=== PATIENT | male | born 1980 | race Caucasian/White ===

== ENCOUNTER 2022-11-24 22:31 | Emergency (ER) | payer BC, SELFPAY ==
[2022-11-24 22:44] VITALS: BP 150/78; PULSE 84; RESP 18; TEMP 36.8; O2SAT 99; BMI 24.4
[2022-11-24 23:06] VITALS: BP 150/78; PULSE 84; RESP 18; TEMP 36.8
--- NOTE | 2022-11-24 23:06 | ED_ITS ---
[facility] - General Adult General Date Seen: 11/24/22 Chief complaint: Allergic Reaction Stated complaint: allergic reaction Time Seen by Provider: 11/24/22 22:47 Source: patient History of Present Illness HPI narrative: Patient is a 42-year-old male who presents for evaluation of rash. He says earlier today he developed itching and a red raised rash on his face and scalp. No new products, medications, or foods. He has not had this happen before. He thought it was getting better but then it recurred. He took some Benadryl about an hour ago. He has not had any difficulty breathing, wheezing, swelling. No recent illness. No vomiting or diarrhea. Symptoms seem to be centered primarily around his face and head. His eyes are a little bit red, eyelids are little swollen. No visual complaints. Related Data Home Medications Medication Instructions Recorded Confirmed No Known Home Medications 11/24/22 11/24/22 Allergies Allergy/AdvReac Type Severity Reaction Status Date / Time No Known Drug Allergies Allergy Verified 11/24/22 22:46 Review of Systems Status of ROS: Reports: 6 or more systems reviewed and unremarkable except as noted in History and below [facility] Medical History No significant past medical history Surgical History No significant past surgical history Social History Smoking Status: Current every day smoker Do you use any of these nicotine containing products: None How often do you have a drink containing alcohol: never How often do you have six or more drinks on one occasion: Never AUDIT-C Alcohol total score: 0 Non-prescribed substance use: denies use Exam Narrative: Exam Narrative: Vital signs as noted above. In general, an alert, well-appearing patient. Breathing easily. Head: Normocephalic, atraumatic. Eyes: Pupils are equal reactive. Extraocular movements are full. Conjunctivae are injected. Lids are slightly edematous without significant erythema. ENT: Mucous membranes are moist. Throat is normal. No edema. No intraoral lesions. Neck: Supple without lymphadenopathy. No stridor. Heart: Regular rate and rhythm. No murmur or rub. Lungs: Clear bilaterally. No increased work of breathing, crackles or wheezes. Extremities: Well perfused. No edema. No calf tenderness. Pulses intact. Neurologic: Patient is alert and oriented to person and place. Speech is fluent. Face is symmetric. Moves all extremities equally. Affect: Normal. Skin: Warm and dry. Well perfused. Scattered small hives on the forehead, few on the scalp. Some erythema noted on the upper chest, neck, without hives. Const: Vital Signs, click to edit/add: Vital Signs - 24 hr 11/24/22 22:44 Temperature 98.2 F Pulse Rate [Right Pulse Oximeter] 84 Respiratory Rate 18 Blood Pressure [Ri ght Upper Arm] 150/78 H Pulse Oximetry 99 Oxygen Delivery Me thod Room Air Documenting provider has reviewed patient's vital signs: yes Course Course Hospital Course: Urticarial reaction, no evidence of anaphylaxis. Etiology unclear. Would recommend continued treatment with antihistamines, will add prednisone. Primary care follow-up for ongoing or recurrent symptoms, consider allergy follow-up at that time. Return for difficulty breathing, swelling, or other severe symptoms. Vital Signs Vital signs: Initial Vital Signs Respiratory Effort Spontaneous 11/24/22 22:33 Respiratory Depth Normal 11/24/22 22:33 Respiratory Pattern 11/24/22 22:33 Vital Signs Temperature 98.2 F 11/24/22 22:44 Pulse Rate 84 11/24/22 22:44 Respiratory Rate 18 11/24/22 22:44 Blood Pressure 150/78 H 11/24/22 22:44 Pulse Oximetry 99 11/24/22 22:44 Oxygen Delivery Method 11/24/22 22:44 Temperature 98.2 F 11/24/22 22:44 Pulse Rate 84 11/24/22 22:44 Respiratory Rate 18 11/24/22 22:44 Blood Pressure 150/78 H 11/24/22 22:44 Pulse Oximetry 99 11/24/22 22:44 Oxygen Delivery Method 11/24/22 22:44 Discharge Plan Discharge Clinical Impression: Hives Patient Disposition: Home, Self-Care Condition: Stable Instructions: Urticaria (ED) Additional Instructions: Continue with Benadryl 4 times daily or Zyrtec (cetirizine) 1-2 times daily for the next several days. Prednisone as prescribed. Return for acute worsening, follow up with primary care if symptoms are persistent/recurrent. Prescriptions: No Action No Known Home Medications Stand Alone Forms: [employer] Info Instructions
== END 2022-11-24 23:11 | disposition home or self-care (01) ==
LOC: ED 23:10
PROVIDERS: Emergency Provider Emergency Medicine
DX: L50.9 Urticaria, unspecified (principal)
CPT/HCPCS: 99282; 99284

== ENCOUNTER 2023-07-16 12:00 | Emergency (ER) | payer BC, SELFPAY ==
[2023-07-16 12:03] VITALS: BP 119/74; PULSE 78; RESP 16; TEMP 36.3; O2SAT 96; BMI 26.0
--- NOTE | 2023-07-16 13:10 | ED.EYEPROB ---
HPI - Eye Problem General Date Seen: 07/16/23 Chief complaint: Eye Problems Stated complaint: L eye injury Time Seen by Provider: 07/16/23 12:35 History of Present Illness HPI Narrative: This is a generally healthy 42-year-old male who is not up-to-date on his tetanus status, who presents to the ER today with a work related injury to his left eye. He was at his job today, in [place]. He was inflating a inner tube for a lawnmower tired. Apparently the tube said that it could tolerate up to 30 psi. He had inflated the tube up to about 15-20 psi when it abruptly exploded in his face. He was struck in the left eye and on the left eyelid by debris. He momentarily had ringing in his ears but was not knocked unconscious. No other headache or symptoms of head injury. He has no injury to his right eye but has had pain and blurry vision and photophobia in his left eye. He has a sensation that there is a foreign body underneath his upper eyelid on the medial aspect of the eye. He also suffered a superficial abrasion to the skin of his left lateral upper eyelid. No deep lacerations. He does not normally wear glasses or contacts. He is on no medications. No allergies. Related Data Home Medications Medication Instructions Recorded Confirmed albuterol sulfate 90 mcg/actuation 1 - 2 puff inhalation Q4H PRN 07/16/23 07/16/23 aerosol inhaler (Ventolin HFA) wheezing Allergies Allergy/AdvReac Type Severity Reaction Status Date / Time No Known Drug Allergies Allergy Verified 07/16/23 12:16 Review of Systems Narrative: Negative [facility] Medical History No significant past medical history Surgical History No significant past surgical history Social History Smoking Status: Current every day smoker Do you use any of these nicotine containing products: None How often do you have a drink containing alcohol: never How often do you have six or more drinks on one occasion: Never AUDIT-C Alcohol total score: 0 Non-prescribed substance use: denies use Exam Narrative: Exam Narrative: Constitutional: Appears well-developed and well-nourished. Alert. Conversant. Non toxic. HENT: Head: Atraumatic. Nose: Nose normal. Mouth/Throat: Oral mucosa is clear and moist. no trismus. Pharynx normal. Tonsils symmetric. No tonsillar enlargement, erythema, or exudate. Eyes: Conjunctivae injected on the left eye. There is a superficial 2 x 4 mm abrasion on the upper outer left eye that does not penetrate through the dermis and does not require sutures. No visible foreign body in the skin. EOM normal. He has a foreign body sensation of a foreign body under his upper left eyelid. On not able to see any foreign body by inspection. I retract/invert the eyelid and do not see any foreign body. I swept the fornix of the upper eyelid using a sterile cotton tip applicator and did not retrieve any foreign body. Despite this he feels a foreign body sensation under the upper/medial left eyelid. Pupils equal, round, and reactive to light. No scleral icterus. Visual acuity (R): 20/25, (L): 20/40(-1) PERRLA, EOMI. No exophthalmos or enophthalmos. Slit Lamp Exam: Lids: No foreign body noted in detailed exam upper and lower lids/margins Anterior Chamber: No cells or flare, No hyphema. No hypopyon. There appears to be scattered tiny punctate spots on the cornea, possibly tiny areas where the cornea was hit by a microscopic bits of debris. No visible corneal foreign bodies under 16 X magnification Cornea: No foreign body. Fluorescein staining: There or 3 or 4 tiny punctate scattered areas of fluorescein uptake. No linear abrasions. No corneal lacerations. Neck: Normal range of motion. Neck supple. No tracheal deviation present. Cardiovascular: Normal rate, regular rhythm. Pulmonary/Chest: Effort normal. No stridor. No respiratory distress. RUE: Normal range of motion. No tenderness. No deformity LUE: Normal range of motion. No tenderness. No deformity RLE: Normal range of motion. No edema. No tenderness. No deformity LLE: Normal range of motion. No edema. No tenderness. No deformity Neurological: Alert and oriented to person, place, and time. Normal strength. CN II-VII intact. No sensory deficit. GCS eye subscore is 4. GCS verbal subscore is 5. GCS motor subscore is 6. Normal coordination Skin: Skin is warm and dry. No rash noted. No pallor. Normal capillary refill. Psychiatric: Normal mood. Normal affect. Const: Vital Signs, click to edit/add: Vital Signs - 24 hr 07/16/23 12:03 Temperature 97.4 F L Pulse Rate [Pulse Oximeter] 78 Respiratory Rate 16 Blood Pressure [Ri t Upper Arm] 119/74 Pulse Oximetry 96 Oxygen Delivery Me thod Room Air Course Vital Signs Vital signs: Initial Vital Signs Temperature 97.4 F L 07/16/23 12:03 Temperature Source Temporal Artery Scan 07/16/23 12:03 Pulse Rate 78 07/16/23 12:03 Pulse Rhythm Regular 07/16/23 12:03 Pulse Strength 3+ Normal 07/16/23 12:03 Respiratory Rate 16 07/16/23 12:03 Blood Pressure 119/74 07/16/23 12:03 Blood Pressure Mean 89 07/16/23 12:03 Blood Pressure Position Sitting 07/16/23 12:03 Pulse Oximetry 96 07/16/23 12:03 Oxygen Delivery Method Room Air 07/16/23 12:03 Vital Signs Temperature 97.4 F L 07/16/23 12:03 Pulse Rate 78 07/16/23 12:03 Respiratory Rate 16 07/16/23 12:03 Blood Pressure 119/74 07/16/23 12:03 Pulse Oximetry 96 07/16/23 12:03 Oxygen Delivery Method Room Air 07/16/23 12:03 Temperature 97.4 F L 07/16/23 12:03 Pulse Rate 78 07/16/23 12:03 Respiratory Rate 16 07/16/23 12:03 Blood Pressure 119/74 07/16/23 12:03 Pulse Oximetry 96 07/16/23 12:03 Oxygen Delivery Method Room Air 07/16/23 12:03 MDM - Eye Problem MDM Narrative Medical decision making narrative: This patient presents with left eye discomfort after a sustained an injury when a tire inner tube exploded in his face at work today. On my eyelid exam I do see evidence for a very superficial abrasion on the upper outer left eyelid that does not require suturing. He is complaining of a foreign body sensation under the upper medial eyelid but I cannot detect foreign body on my exam today. I suspect there may be a foreign body deeper under the eyelid or further back inside the orbit. He will need referral to Ophthalmology for further evaluation. Fluorescein exam shows staining consistent with a few tiny corneal abrasions. No linear abrasions to suggest a retained foreign body scratch in the cornea. Although I have clinical suspicion that there is an eyelid foreign body, No foreign bodies in eyes or lids noted. No corneal ulcers. I cannot identify any retained contact or corneal foriegn body at this time. No signs of retinal abnormalities, dendritic lesions, open globe, acute glaucoma, or other serious eye disease. No signs of anterior chamber involvement such as endopthalmitis at this point. No sign of bacterial conjunctivitis. Lids are normal. The ED doc was able to contact the eye clinic. They were able to see the patient's afternoon if he has expeditiously discharge goes directly there. PLAN: 1. Topical antibiotics gentamicin 0.3% 2 drops administered here in the ER. He will continue 2 drops Q 6 hours while awake. 2. Pain management with orals meds 3. Follow-up in clinic this afternoon with Ophthalmology at [facility] for repeat eye exam Discharge Plan Discharge Clinical Impression: Acute foreign body of eyelid, Corneal abrasion Patient Disposition: Home, Self-Care Instructions: Corneal Abrasion (DC) Additional Instructions: Follow up appointment is scheduled at [facility] with a 2pm appointment time. If you have any questions, please call [phone]. [id number] [place] [address] Prescriptions: No Action albuterol sulfate [Ventolin HFA] 90 mcg/actuation HFA aerosol inhaler 1 - 2 puff INHALATION Q4H PRN (Reason: wheezing) Follow Up/Referrals: Provider,Not a Local [Primary Care Provider] - Stand Alone Forms: [employer] Info Instructions
[2023-07-16] MEDS: TETANUS/DIPHTH/PERTUSSIS 0.5 ML SYRINGE IM (13:18)
== END 2023-07-16 13:22 | disposition home or self-care (01) ==
LOC: ED 13:17
PROVIDERS: Emergency Provider Emergency Medicine
DX: T15.02XA Foreign body in cornea, left eye, initial encounter (principal)
CPT/HCPCS: 65222; 90471; 90715; 99283; A9270

== ENCOUNTER 2023-11-02 22:14 | Emergency (ER) | payer BC, SELFPAY ==
[2023-11-02 22:22] VITALS: BP 110/74; PULSE 91; RESP 16; TEMP 36.3; O2SAT 97; BMI 25.5
--- NOTE | 2023-11-02 22:46 | ED_ITS ---
HPI - General Adult General Time Seen by Provider: 22:47 Date Seen: 11/02/23 Chief complaint: Extremity Pain/Injury, Upper Stated complaint: L hand issues Time Seen by Provider: 11/02/23 22:35 Source: patient Mode of arrival: ambulatory Limitations: no limitations History of Present Illness HPI narrative: 42-year-old male who comes in today with tingling of the left hand, little finger and ring finger that he noted tonight. Distant history of fracture of the left hand which was not set appropriately. Patient notes no new injury, has not taken anything for this. He is right-handed. Related Data Home Medications Medication Instructions Recorded Confirmed albuterol sulfate 90 mcg/actuation 1 - 2 puff inhalation Q4H PRN 07/16/23 07/16/23 aerosol inhaler (Ventolin HFA) wheezing nicotine 21 mg/24 hr daily 1 patch topical DAILY 11/02/23 11/02/23 transdermal patch Allergies Allergy/AdvReac Type Severity Reaction Status Date / Time No Known Drug Allergies Allergy Verified 07/16/23 12:16 [facility] Medical History No significant past medical history Surgical History No significant past surgical history Social History Smoking Status: Current every day smoker What tobacco products do you use: cigarettes Do you use any of these nicotine containing products: None How often do you have a drink containing alcohol: 2-3 times a week How many standard drinks containing alcohol do you have on a typical day: 1 or 2 How often do you have six or more drinks on one occasion: Never AUDIT-C Alcohol total score: 3 Non-prescribed substance use: marijuana (any form) Exam Narrative: Exam Narrative: General: well nourished , NAD Head: Atraumatic and normocephalic ENT: External ears and external nose are normal Eyes: Conjunctiva clear, pupils are equal reactive, external ocular motions are intact Neck: Full spontaneous range of motion of the neck Lungs: No respiratory distress Musculoskeletal: Dorsal angulation of the 5th metacarpal of the left hand which patient says is chronic, no redness, swelling, or tenderness in this area Neurologic: No gross focal neurologic deficits. Sensation and strength of the left hand intact. Pressure over the ulnar styloid results in tingling and pain in the ulnar nerve distribution of the hand consistent with patient's symptoms. Skin: No rashes Psych: Mood and affect are appropriate Const: Vital Signs, click to edit/add: Vital Signs - 24 hr 11/02/23 22:22 Temperature 97.4 F L Pulse Rate [Pulse Oximeter] 91 Respiratory Rate 16 Blood Pressure [Ri ght Upper Arm] 110/74 Pulse Oximetry 97 Oxygen Delivery Me thod Room Air Course Course ED Course: Patient seen and examined, prior records reviewed. Patient presents today with pain and paresthesias in the ulnar nerve distribution on the left-hand. Patient will be given a splint and follow-up with Hand surgery in 1-2 weeks, consider physical therapy. Vital Signs Vital signs: Initial Vital Signs Temperature 97.4 F L 11/02/23 22:22 Temperature Source Temporal Artery Scan 11/02/23 22:22 Pulse Rate 91 11/02/23 22:22 Respiratory Rate 16 11/02/23 22:22 Blood Pressure 110/74 11/02/23 22:22 Blood Pressure Mean 86 11/02/23 22:22 Blood Pressure Position Sitting 11/02/23 22:22 Pulse Oximetry 97 11/02/23 22:22 Oxygen Delivery Method Room Air 11/02/23 22:22 Vital Signs Temperature 97.4 F L 11/02/23 22:22 Pulse Rate 91 11/02/23 22:22 Respiratory Rate 16 11/02/23 22:22 Blood Pressure 110/74 11/02/23 22:22 Pulse Oximetry 97 11/02/23 22:22 Oxygen Delivery Method Room Air 11/02/23 22:22 Temperature 97.4 F L 11/02/23 22:22 Pulse Rate 91 11/02/23 22:22 Respiratory Rate 16 11/02/23 22:22 Blood Pressure 110/74 11/02/23 22:22 Pulse Oximetry 97 11/02/23 22:22 Oxygen Delivery Method Room Air 11/02/23 22:22 Discharge Plan Discharge Clinical Impression: 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 Wear wrist splint especially at night. Follow-up with hand surgery in 1-2 weeks for further evaluation. [facility]- [phone] and request an appointment with the hand and wrist clinic Activity Level: Activity as Tolerated Discharge Diet: Regular Prescriptions: No Action nicotine 21 mg/24 hr patch 24 hour 1 patch topical DAILY albuterol sulfate [Ventolin HFA] 90 mcg/actuation HFA aerosol inhaler 1 - 2 puff INHALATION Q4H PRN (Reason: wheezing) Follow Up/Referrals: Provider,Not a Local [Primary Care Provider] - Stand Alone Forms: [employer] Info Instructions
== END 2023-11-02 23:06 | disposition home or self-care (01) ==
LOC: ED 22:53
PROVIDERS: Emergency Provider Family Medicine
DX: G56.12 Other lesions of median nerve, left upper limb (principal)
CPT/HCPCS: 29125; 95992; 99283

== ENCOUNTER 2024-04-24 07:03 | Emergency (ER) | payer BC, SELFPAY ==
[2024-04-24 07:06] VITALS: BP 110/76; PULSE 74; RESP 16; TEMP 36.6; O2SAT 95; BMI 24.1
--- NOTE | 2024-04-24 07:44 | ED.GENADULT ---
HPI - General Adult General Chief complaint: Back Injury/Pain Stated complaint: back pain Time Seen by Provider: 04/24/24 07:20 Source: patient Mode of arrival: ambulatory Limitations: no limitations History of Present Illness HPI narrative: 43-year-old male presents the emergency department with left lower lumbar spine pain that does not radiate. Pain started a couple nights ago after he was sleeping on his couch. Stopover like he rolled over funny and has had pain ever since. Achy pain, worse with movement. No trauma or injury. No fall. No radiculopathy. No numbness or tingling, weakness in the legs, loss of bowel or bladder control. Reports that he had similar symptoms about 20 years ago. He was diagnosed with degenerative disc disease through what sounds like an x-ray and MRI in 2004. It sounds like he did physical therapy and was on pain medication for several months but eventually was able to be weaned off. Has not had frequent issues since. He does smoke. He says that he has tried taking 800 mg ibuprofen once daily which does help a little bit but no lasting relief. No recent steroids. It sounds like he did have a couple of injections in his back but 19 years ago with the original treatment, nothing recent. States that his past medical history is benign, no major long-term health problems. No long-term medications. Allergies to amoxicillin and dust. Smoker but denies any other pertinent surgical history, medical history or social history. ROS is notable for the musculoskeletal issues as described above. Otherwise denies any other generalized, skin, neurological, musculoskeletal or respiratory changes. Related Data Home Medications ?Medication ?Instructions ?Recorded ?Confirmed albuterol sulfate 90 mcg/actuation 1 - 2 puff inhalation Q4H PRN 07/16/23 04/24/24 aerosol inhaler (Ventolin HFA) wheezing nicotine 21 mg/24 hr daily 1 patch topical DAILY 11/02/23 04/24/24 transdermal patch Previous Rx's ?Medication ?Instructions ?Recorded cyclobenzaprine 10 mg tablet 10 mg PO BID PRN muscle spasm #30 04/24/24 tabs ketorolac 10 mg tablet 10 mg PO Q6H PRN pain 5 days #20 04/24/24 tabs prednisone 20 mg tablet 40 mg (2 x 20 mg) PO DAILY #8 tabs 04/24/24 Allergies Allergy/AdvReac Type Severity Reaction Status Date / Time amoxicillin Allergy Mild hives Verified 04/24/24 07:11 house dust Allergy Mild noses Verified 04/24/24 07:11 running, eyes and throat dry PFSH PFSH Medical History No significant past medical history Surgical History No significant past surgical history Social History Smoking Status: Current every day smoker What tobacco products do you use: cigarettes Do you use any of these nicotine containing products: None How often do you have a drink containing alcohol: 2-3 times a week How many standard drinks containing alcohol do you have on a typical day: 1 or 2 How often do you have six or more drinks on one occasion: Never AUDIT-C Alcohol total score: 3 Non-prescribed substance use: marijuana (any form) Exam Const: Vital Signs, click to edit/add: Vital Signs - 24 hr 04/24/24 07:06 Temperature 97.9 F Pulse Rate [Pulse Oximeter] 74 Respiratory Rate 16 Blood Pressure [Ri ght Upper Arm] 110/76 Pulse Oximetry 95 Oxygen Delivery Me thod Room Air Documenting provider has reviewed patient's vital signs: yes Common normals: no apparent distress General appearance: cooperative Other: Seems mildly uncomfortable but not in significant distress. HENMT: Common normals: moist oral mucous membranes and oropharynx normal Face and sinus: normal facial exam Mouth: oral and palatal mucosa normal Eye: Common normals: conjunctivae normal General eye: normal appearance of both eyes Conjunctiva: conjunctiva(e) normal Neck & C-Spine: General: normal visual inspection Resp: Common normals: normal respiratory effort, no use of accessory muscles and clear to auscultation bilaterally Effort & inspection: able to speak in complete sentences Auscultation: clear to auscultation bilaterally Cardio: Common normals: regular rate, regular rhythm, S1 normal heart sound, S2 normal heart sound and no murmurs Rate: regular rate Rhythm: regular rhythm Heart sounds: S1 normal and S2 normal : Common normals: no CVA tenderness Bladder/kidney exam: no CVA tenderness Back & Pelvis: Common normals: no CVA tenderness and thoracic and lumbar spine normal to inspection Other: No point bony tenderness to lumbar spine. Pain is a little worse with extension of the back. Flexion is limited to about 60?. He has a 2.5 cm classic sebaceous cyst around the L4 area on the left which is not inflamed and not his point of maximal tenderness. Main tenderness is on the left paraspinal muscles and along the left lateral spine bodies at the SI joint, L5 and L4. Nothing on the right. Mild paraspinal muscle spasm noted. Radicular testing is negative. Straight leg lift is positive at 0 to 30?, not in the 30-70 arc. Axial load sign negative, spondylosis testing negative. Patellar reflexes are 3+ bilaterally. Sensation equal in both lower extremities. Muscle strength +5/5 in lower extremities, symmetric and equal. Extremity: Other: Legs with normal strength, no deformity, effusions or abnormalities to the ankle and knee joints. Neuro: Speech: speech normal Gait (neuro): normal gait Motor exam: strength 5/5 throughout and no movement abnormalities noted Psych: Appearance: grossly normal Attitude: engaged Thought content: normal thought content Attention/concentration: attention grossly intact Memory/cognition: memory grossly intact Insight: insight good Judgement: judgment good Skin: Narrative: Mild non inflamed sebaceous cyst 2 and half by 2 cm on lower lumbar area, not current source of pain. Course Course ED Course: 43-year-old male with flare-up of back pain. No trauma to suggest fracture. No radicular or neurological impingement features, no red flags for major spinal injury. Known history of degenerative disc disease from 20 years ago confirmed by advanced imaging. No recent physical therapy, steroids or injection but has had these in the remote past. On exam, etiology seems like a muscular strain but certainly could be a very mild flare up of his disc disease and some mild neurological impingement that is not affecting nerve function. Counseled patient on findings. I do not think further imaging will be helpful. Patient counseled on scheduling physical therapy. He will start prednisone 40 mg once daily for 5 days. 1st dose given in ED. Prescription for Toradol 10 mg q.i.d. x5 days, 1st dose given in ED and prescription for Flexeril 10 mg p.o. b.i.d. as a muscle relaxant. First dose given in ED. Additional script sent to his local pharmacy. Counseled that the Flexeril may cause drowsiness, he may want to save it for nighttime. Discharge instructions including alarm symptoms discussed, handout on low back exercises also given. Off of work for today but may try to return tomorrow. Patient verbalizes understanding and agreement Vital Signs Vital signs: Initial Vital Signs Temperature 97.9 F 04/24/24 07:06 Temperature Source Temporal Artery Scan 04/24/24 07:06 Pulse Rate 74 04/24/24 07:06 Respiratory Rate 16 04/24/24 07:06 Blood Pressure 110/76 04/24/24 07:06 Blood Pressure Mean 87 04/24/24 07:06 Blood Pressure Position Sitting 04/24/24 07:06 Pulse Oximetry 95 04/24/24 07:06 Oxygen Delivery Method Room Air 04/24/24 07:06 Vital Signs Temperature 97.9 F 04/24/24 07:06 Pulse Rate 74 04/24/24 07:06 Respiratory Rate 16 04/24/24 07:06 Blood Pressure 110/76 04/24/24 07:06 Pulse Oximetry 95 04/24/24 07:06 Oxygen Delivery Method Room Air 04/24/24 07:06 Temperature 97.9 F 04/24/24 07:06 Pulse Rate 74 04/24/24 07:06 Respiratory Rate 16 04/24/24 07:06 Blood Pressure 110/76 04/24/24 07:06 Pulse Oximetry 95 04/24/24 07:06 Oxygen Delivery Method Room Air 04/24/24 07:06 Discharge Plan Discharge Clinical Impression: Strain of lumbar region Patient Disposition: Home, Self-Care Condition: Stable Instructions: Low Back Strain (ED), Lower Back Exercises (ED) Additional Instructions: As we discussed, there are no signs of any impingement of the nerves that feature legs or any signs that this will cause permanent nerve damage, this is good news. I am not surprised to hear that you know that you have degenerative disc disease of the lower lumbar spine, that is what I am finding on your exam today too. Without any new trauma or red flags on your exam, I do not recommend repeat x-rays or MRI. Your exam is consistent with what we already know about your back. I would strongly recommend that you schedule a new in-person physical therapy assessment, not just do the exercises that you previously knew. You do not need a referral from the emergency room for this. To calm down the inflammation, I am starting you on prednisone. He will take 2 pills once daily for the next 5 days, your 1st dose will be given here in the emergency room. Within a couple of days, this will start to calm down the pain and will actually help reduce the inflammation. For pain, I recommend you take [id number] Tylenol 1000 mg every 6 hours continuously for the next few days. I am also giving you a supply of Toradol, and anti-inflammatory pain medication that is similar to ibuprofen but I find it is more effective for this type of pain. Do not take additional Aleve or ibuprofen while you are taking the Toradol for the next 5 days but again, you may continue to take Tylenol as they are in different medication families. I am also giving you a supply of Flexeril, a muscle relaxant. This may cause significant sleepiness so you may want to save it for nighttime only. But if the pain is very bothersome, you may take it up to every 8 hours. Thank should start to improve within a couple of days. If you have had no improvement in 5 days, please make a follow-up appointment in the clinic to discuss long-term plans and management with a primary care provider. If you have sudden loss of bowel or bladder control, have significant weakness in your legs to the point where it is difficult to walk or you have significant numbness and tingling, you should come to an emergency room. You may return to typical work duties tomorrow. Activity Level: Activity as Tolerated Discharge Diet: Regular Prescriptions: New prednisone 20 mg tablet 40 mg PO DAILY Qty: 8 0RF Rx Instructions: 1st dose given in ED, begin these Wednesday morning ketorolac 10 mg tablet 10 mg PO Q6H PRN (Reason: pain) 5 Days Qty: 20 0RF cyclobenzaprine 10 mg tablet 10 mg PO BID PRN (Reason: muscle spasm) Qty: 30 0RF No Action nicotine 21 mg/24 hr patch 24 hour 1 patch topical DAILY albuterol sulfate [Ventolin HFA] 90 mcg/actuation HFA aerosol inhaler 1 - 2 puff INHALATION Q4H PRN (Reason: wheezing) Follow Up/Referrals: Provider,Not a Local [Primary Care Provider] - Stand Alone Forms: [employer] Info Instructions
[2024-04-24] MEDS: CYCLOBENZAPRINE HCL 10 MG TABLET PO (07:48)
[2024-04-24] MEDS: predniSONE 20 MG TABLET 40 MG PO (07:48)
[2024-04-24] MEDS: KETOROLAC 10 MG TABLET PO (07:48)
== END 2024-04-24 07:54 | disposition home or self-care (01) ==
PROVIDERS: Emergency Provider Family Medicine
DX: S39.012A Strain of muscle, fascia and tendon of lower back, initial encounter (principal)
CPT/HCPCS: 99283; A9270; J7512

== ENCOUNTER 2024-10-09 20:32 | Emergency (ER) | payer SELFPAY ==
--- NOTE | 2024-10-09 20:40 | CRLHL7_ITS ---
For Patients: As a result of the Cures Act, medical imaging exams and procedure reports are released immediately into your electronic medical record. You may view this report before your referring provider. If you have questions, please contact your health care provider. INDICATION: Trauma. TECHNIQUE: Right hand 3 views. COMPARISON: None. FINDINGS: Fourth PIP joint dislocation with volar subluxation of the middle phalanx relative to the proximal phalanx. Questionable avulsion injury of the 4th middle phalangeal base. Associated soft tissue swelling of the 4th digit. IMPRESSION: Fourth PIP joint dislocation with questionable avulsion injury of the 4th middle phalangeal base. Dictated by Jaylen Tejada MD @ 10/09/2024 9:22:21 PM (Electronically Signed)
[2024-10-09 20:42] VITALS: BP 160/76; PULSE 89; RESP 20; TEMP 36.9; O2SAT 99; BMI 25.6
--- NOTE | 2024-10-09 20:52 | ED.UPPEXIN ---
HPI - Extremity Injury (Upper) General Date Seen: 10/09/24 Chief Complaint: Extremity Pain/Injury, Upper Stated Complaint: R finger injury Time Seen by Provider: 10/09/24 20:33 Source: patient Mode of arrival: ambulatory Limitations: no limitations History of Present Illness HPI narrative: patient is a 43-year-old male presenting for injury to his right 4th finger. 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 Notice not obvious deformity right away came to the emergency department. No other injuries noted. States the pain is About a 6 to 7/10. denies numbness right now. No other concerns Related Data Home Medications ?Medication ?Instructions ?Recorded ?Confirmed albuterol sulfate 90 mcg/actuation 1 - 2 puff inhalation Q4H PRN 07/16/23 04/24/24 aerosol inhaler (Ventolin HFA) wheezing nicotine 21 mg/24 hr daily 1 patch topical DAILY 11/02/23 04/24/24 transdermal patch Previous Rx's ?Medication ?Instructions ?Recorded cyclobenzaprine 10 mg tablet 10 mg PO BID PRN muscle spasm #30 04/24/24 tabs ketorolac 10 mg tablet 10 mg PO Q6H PRN pain 5 days #20 04/24/24 tabs prednisone 20 mg tablet 40 mg (2 x 20 mg) PO DAILY #8 tabs 04/24/24 Allergies Allergy/AdvReac Type Severity Reaction Status Date / Time amoxicillin Allergy Mild hives Verified 04/24/24 07:11 house dust Allergy Mild noses Verified 04/24/24 07:11 running, eyes and throat dry Review of Systems Narrative: Pertinent systems reviewed and were negative unless stated in HPI PFSH PFSH Medical History No significant past medical history Surgical History No significant past surgical history Social History Smoking Status: Current every day smoker What tobacco products do you use: cigarettes Do you use any of these nicotine containing products: None How often do you have a drink containing alcohol: 2-3 times a week How many standard drinks containing alcohol do you have on a typical day: 1 or 2 How often do you have six or more drinks on one occasion: Never AUDIT-C Alcohol total score: 3 Non-prescribed substance use: marijuana (any form) Exam Narrative: Exam Narrative: Const: Well-nourished, Well-developed, in mild distress Eyes: PERRL, no conjunctival injection, and symmetrical lids HENT: Atraumatic external nose and ears. Moist mucous membranes. MSK: obvious deformity to the right 4th finger. Appears to be dislocated. Unable to move it Skin: Warm, Dry. No rashes or lesions. Neuro: Normal Muscle tone, No focal neurological deficits. Psych: Awake, Alert, & Oriented x3. Appropriate mood and affect. Const: Vital Signs, click to edit/add: Vital Signs - 24 hr 10/09/24 20:42 10/09/24 22:27 10/09/24 22:28 Temperature 98.4 F 98.4 F 98.4 F Pulse Rate [Right Pulse Oximeter] 89 79 79 Respiratory Rate 20 20 20 Blood Pressure [Ri ght Upper Arm] 160/76 H 132/74 132/74 Pulse Oximetry 99 99 Oxygen Delivery Me thod Room Air Room Air Course Vital Signs Vital signs: Initial Vital Signs Temperature 98.4 F 10/09/24 20:42 Temperature Source Temporal Artery Scan 10/09/24 20:42 Pulse Rate 89 10/09/24 20:42 Respiratory Rate 20 10/09/24 20:42 Blood Pressure 160/76 H 10/09/24 20:42 Blood Pressure Mean 104 10/09/24 20:42 Blood Pressure Position Sitting 10/09/24 20:42 Pulse Oximetry 99 10/09/24 20:42 Oxygen Delivery Method Room Air 10/09/24 20:42 Vital Signs Temperature 98.4 F 10/09/24 20:42 Pulse Rate 89 10/09/24 20:42 Respiratory Rate 20 10/09/24 20:42 Blood Pressure 160/76 H 10/09/24 20:42 Pulse Oximetry 99 10/09/24 20:42 Oxygen Delivery Method Room Air 10/09/24 20:42 Temperature 98.4 F 10/09/24 22:28 Pulse Rate 79 10/09/24 22:28 Respiratory Rate 20 10/09/24 22:28 Blood Pressure 132/74 10/09/24 22:28 Pulse Oximetry 99 11/25/24 22:27 Oxygen Delivery Method Room Air 10/09/24 22:27 Medications Administered Medications: Discontinued Medications Generic Name Dose Route Start Last Admin Trade Name Freq PRN Reason Stop Dose Admin Lidocaine/Epinephrine 4 ml 10/09/24 21:44 10/09/24 21:10 Lidocaine 1%-Epi 1:100,000 INFILTRATI 10/09/24 21:45 4 ml ONCE ONE Administration MDM - Extremity Injury (Upper) MDM Narrative Medical decision making narrative: Patient is a 40-year-old male presenting for right 4th finger injury. X-ray was done showing dislocation and possible avulsion fracture of the 4th middle phalange. I was able to reduce the finger using a digital nerve block and traction. Repeat x-ray shows anatomic alignment of the 4th PIP joint. Again demonstrated this suspect tiny avulsion injury of the 4th middle phalangeal base. Will place the patient in a zinc splint for the finger. Informed him to keep it in the splint for the next week given farhat tape for a couple weeks after that. Also informed him to follow up with Orthopedics within the week. He is agreeable to this plan. Due to his injury will provide him with four oxycodone via [employer] [facility] Data Hand x-ray: Attestation: I have reviewed the pertinent imaging results. Radiologist's impression: Fourth PIP joint dislocation with questionable avulsion injury of the 4th middle phalangeal base. Dictated by Jaylen Tejada MD @ 10/09/2024 9:22:21 PM Post reduction x-ray: Attestation: I have reviewed the pertinent imaging results. Radiologist's impression: 1. Anatomic alignment of the 4th PIP joint status post reduction. 2. Suspect tiny avulsion injury of the 4th middle phalangeal base. Dictated by Jaylen Tejada MD @ 10/09/2024 9:56:30 PM Discharge Plan Discharge Clinical Impression: Dislocation of finger Qualifiers: Encounter type: initial encounter Qualified Code(s): S63.259A - Unspecified dislocation of unspecified finger, initial encounter Avulsion fracture of middle phalanx of finger Qualifiers: Encounter type: initial encounter Fracture type: closed Qualified Code(s): S62.629A - Displaced fracture of middle phalanx of unspecified finger, initial encounter for closed fracture Patient Disposition: Home, Self-Care Condition: Stable Instructions: Finger Dislocation (ED) Additional Instructions: Wear the splint on your finger for the next week. After that use farhat taping to your middle finger for the next 2 weeks after. Follow-up with [facility] within the week. Call them at . Take Tylenol and ibuprofen for pain. If last time working you can use the oxycodone provided via [employer] Prescriptions: No Action nicotine 21 mg/24 hr patch 24 hour 1 patch topical DAILY prednisone 20 mg tablet 40 mg PO DAILY Qty: 8 0RF Rx Instructions: 1st dose given in ED, begin these Wednesday morning ketorolac 10 mg tablet 10 mg PO Q6H PRN (Reason: pain) 5 Days Qty: 20 0RF cyclobenzaprine 10 mg tablet 10 mg PO BID PRN (Reason: muscle spasm) Qty: 30 0RF albuterol sulfate [Ventolin HFA] 90 mcg/actuation HFA aerosol inhaler 1 - 2 puff INHALATION Q4H PRN (Reason: wheezing) Follow Up/Referrals: Provider,Not a Local [Primary Care Provider] - Stand Alone Forms: [facility] Info Instructions Procedures Orthopedic Joint Reduction Right 4th digit: Joint Reduction Location: finger Manipulation used?: Yes Analgesia: nerve block (Digital nerve block) Local Anesthesia: lidocaine 1% Amount of anesthesic used (mL): 4 Technique used: traction/counter-traction Post-reduction neuro vascular exam: intact Post Reduction X-Ray Obtained: Yes Post Reduction X-Ray Results: reduced Splint Applied: Yes Patient Tolerated Procedure: well
--- NOTE | 2024-10-09 20:59 | CRLHL7_ITS ---
For Patients: As a result of the Cures Act, medical imaging exams and procedure reports are released immediately into your electronic medical record. You may view this report before your referring provider. If you have questions, please contact your health care provider. INDICATION: Postreduction. TECHNIQUE: Right hand 3 views. COMPARISON: Less than 1 hour prior. FINDINGS: Anatomic alignment of the 4th PIP joint status post reduction. Suspect tiny avulsion injury of the 4th middle phalangeal base. Persistent fourth digit soft tissue swelling. IMPRESSION: 1. Anatomic alignment of the 4th PIP joint status post reduction. 2. Suspect tiny avulsion injury of the 4th middle phalangeal base. Dictated by Jaylen Tejada MD @ 10/09/2024 9:56:30 PM (Electronically Signed)
[2024-10-09] MEDS: LIDOCAINE 1%-EPI 1:100,000 4 ML INFILTRATI (21:10)
[2024-10-09 22:27] VITALS: BP 132/74; PULSE 79; RESP 20; TEMP 36.9; O2SAT 99
[2024-10-09 22:28] VITALS: BP 132/74; PULSE 79; RESP 20; TEMP 36.9
== END 2024-10-09 22:28 | disposition home or self-care (01) ==
PROVIDERS: Emergency Provider Student in an Organized Health Care Education/Training Program
DX: S63.284A Dislocation of proximal interphalangeal joint of right ring finger, initial encounter (principal); X58.XXXA Exposure to other specified factors, initial encounter; Y99.0 Civilian activity done for income or pay
CPT/HCPCS: 26770; 73130; 99283

== ENCOUNTER 2025-03-02 21:13 | Emergency (ER) | payer BC, SELFPAY ==
--- OUTSIDE RECORDS SUMMARY | 2025-03-02 21:15 | XMS_ITS | Clinical Summary ---
Author Organization [facility] Address [address] [place] [id number] Care Team Providers Care Cooperer Name Role Phone Ender Webster MD Unavailable [phone] Rosalio Quintana MD Primary Care Provider Allergies Active Allergy Reactions Criticality Noted Date Comments Penicillins *Unknown 01/02/2021 Detected at allergy testing Medications albuterol HFA (PRO-AIR; VENTOLIN; PROVENTIL) 90 mcg/actuation inhalerIndicatio ns:Difficulty breathing,Asthma , unspecified asthma severity, unspecified whether complicated, unspecified whether persistent (HC) Inhale 1-2 Puffs by mouth every 4 hours if needed for Shortness Of Breath or Wheezing. 8 g 3 3 Active nicotine 21 mg/24 hr (NICODERM; HABITROL) 21 mg/24 hr patchIndications :Smoker Apply 1 Patch on dry, clean, hairless skin once daily. 28 Patch 2 5 Active nicotine 14 mg/24 hr (NICODERM; HABITROL) 14 mg/24 hr patchIndications :Smoker Apply 1 Patch on dry, clean, hairless skin once daily. 14 Patch 1 5 Active nicotine 7 mg/24 hr (NICODERM; HABITROL) 7 mg/24 hr patchIndications :Smoker Apply 1 Patch on dry, clean, hairless skin once daily. 14 Patch 1 5 Active Active Problems Problem Noted Date Diagnosed Date Chalazion of right upper eyelid 06/13/2024 Smoker 11/30/2019 Anxiety and depression 11/30/2019 Mild intermittent asthma without complication DDD (degenerative disc disease), lumbar 02/26/20 16 Chronic pain syndrome 02/26/2016 Encounters Date Type Department Care Team Description 01/24/2025 Refill [facility] [id number] [place] [id number] Rosalio Quintana MD Refill Request (Nicotine/) 01/19/2025 2:35 PM QUALITY WORKER Office Visit [address] [address] Anais Flores PA Medication Management 01/19/2025 Travel 01/11/[address] [address] Rosalio Quintana MD Refill Request (Nicotine 21 Mg/24 Hr, Nicotine 14 Mg/24 Hr, Nicotine 7 Mg/24 Hr) from Last 3 Months Immunizations Immunization Administration Dates Next Due COVID-19 vaccine (Moderna 100mcg/0.5mL) PFMDV 05/08/2021,04/10/2021 Influenza, IIV3 (Age >=3 years) 09/16/2012 Tdap 07/16/2023 Family History Medical History Relation Name Comments Unknown Brother Good Health Daughter x 2 COPD Father Other Father degenerative di sc disease Heart attack Maternal Grandfather Asthma Mother Hypothyroidism Mother Cancer-colon Paternal Grandfather Other Paternal Grandfather degener ative disc disease Good Health Son Cancer-breast No Family History Cancer-ovarian No Family History Relation Name Status Comments Brother Alive Daughter x 2 Alive Father Alive Maternal Grandfather Maternal Grandmother Mother Alive Paternal Grandfather Paternal Grandmother Son Alive Social History Tobacco Use Types Packs/Day Years Used Date Smoking Tobacco: Some Days Cigarettes 0.4 31.3 Started: 11/15/1993 Smokeless Tobacco: Never Tobacco Cessation:Ready to Q uit: Not Asked; Counseling Given: Not Answered Comments:Would like to try patches Alcohol Use Standard Drinks/Week Comments Yes 9 (1 standard drink = 0.6 oz pur e alcohol) weekends PHQ-2 Answer Date Recorded PHQ-2 TOTAL SCORE 5 02/27/2021 Social Connections Answer Date Recorded Do you often feel lonely or isolated from those around you? 0 06/13/2024 Financial Resource Strain Answer Date R ecorded Difficulty of Paying Living Expenses 3 06/13/2024 Difficulty of Paying Living Expenses Not on file 06/13/2024 Food Insecurity Answer Date Recorded Do you worry your food will run out before you are able to buy more? 1 06/13/2024 Transportation Needs Answer Date Record ed Does lack of transportation keep you from medica l appointments? 1 06/13/2024 Does lack of transportation keep you from work, meetings or getting things that you need? 1 06/13/2024 Housing Stability Answer Date Recorded What is your housing situation today? 1 06/13/2024 Utilities Answer Date Recorded Do you have trouble paying f or utilities (for example, heat, electricity, water, phone)? 1 06/13/2024 Sex and Gender Information Value Date Recorded Sex Assigned at Not on file Legal Sex Male 6:54 PM QUALITY WORKER Gender Identity Not on file Sexual Orientation Not on file Occupation Industry Job Start Date Job End Date Not on file Not on file Not on file Not on file Obstetrics History Last Filed Vital Signs Vital Sign Reading Time Taken Comments Blood Pressure 110/78 01/19/2025 2:33 PM QUALITY WORKER Pulse 78 01/19/2025 2:33 PM QUALITY WORKER Temperature 36.7 C (98 F) 08/09/2008 11:54 PM CDT Respiratory Rate 18 08/10/2008 1:00 AM CDT Oxygen Saturation 98% 01/19/2025 2:3 3 PM QUALITY WORKER Inhaled Oxygen Concentration - - Weight 90.8 kg (200 lb 3.2 oz) 01/20/20 25 2:33 PM QUALITY WORKER with shoes Height 183.5 cm (6' 0.24) 01/19/2025 2 :33 PM QUALITY WORKER with shoes Body Mass Index 26.97 01/19/2025 2:33 PM QUALITY WORKER Plan of Treatment Health Maintenance Due Date Last Done Comments HIV for age 15-65 1995 Hepatitis C screening for ag e 18-79 1998 Pneumococcal series for age 6-49 (1 of 2 - PCV) 1999 Lipids for age 35-44 2015 Depression screening for age 12+ 02/27/2022 02/27/2021, 02/27/2021, 01/10/2020, Additional history exists COVID-19 vaccine series (2023- season) 2024 05/08/2021, 04/10/2021 Influenza Vaccine (Season Ended) 2025 09/16/20 12 BMI (ht and wt on same day) for age 18+ 01/19/2026 01/19/2025, 12/17/2022, 01/10/2021, Additional history exists Tetanus booster 07/16/2033 07/16/2023 Tdap Completed 07/16/2023 Insurance [id number] [employer] MD [employer] MD Care Teams Cooperer Relationship Specialty [place] [address] [place] [address] PCP - General Family Practice 12/09/23 Ender Webster MD Family Practice 08/02/15
--- OUTSIDE RECORDS SUMMARY | 2025-03-02 21:15 | XMS_ITS | Clinical Summary ---
Author Organization [facility] Address [address] [place] [address] Care Team Providers Care Rn Behavioral Health Name Role Phone Unavailable Primary Care Provider Unavailabl e Source Comments [facility],non-owned Affiliates and Associated Physician Practices is amultiple site organization consisting of ambulatory clinics and hospital sitesin [place], [place], [place] and [place]. This disclosure is being madepursuant to the Care Everywhere program and may not contain all information available regarding this patient. Last updated 18.[facility] Social History Tobacco Use Types Packs/Day Years Used Date Smoking Tobacco: Heavy Smoker Cigarettes Sex and Gender Information Value Date Recorded Sex Assigned at Not on file Legal Sex Male 2:27 PM CDT Gender Identity Not on file Sexual Orientation Not on file Last Filed Vital Signs Vital Sign Reading Time Taken Comments Blood Pressure 111/80 05/11/2016 3:33 AM CDT Pulse 100 05/11/2016 9:33 AM CDT Temperature 36.4 C (97.5 F) 05/11/2016 3:33 AM CDT Respiratory Rate 16 05/11/2016 3:33 AM CDT Oxygen Saturation 99% 05/11/2016 3:33 AM CDT Inhaled Oxygen Concentration - - Weight - - Height - - Body Mass Index - - Plan of Treatment Health Maintenance Due Date Last Done Comments LIPID TESTING 1980 HIV SCREENING 1995 HEPATITIS C SCREENING 11/17/1998 DTAP/TDAP/TD VACCINES (1 - Tdap) 1999 HEPATITIS B VACCINE (1 of 3 - 19+ 3-dose series) 1999 COVID-19 VACCINE ( - 2023-2 5 season) 2024 DEPRESSION SCREENING 11/15/2024 INFLUENZA VACCINE (Season Ended) 2025 ZOSTER VACCINE (1 of 2) 2030 HIB VACCINE Aged Out No longer eligi ble based on patient's age to complete this topic HPV VACCINE Aged Out No longer eligi ble based on patient's age to complete this topic MENINGOCOCCAL (Group B) VACC INE SHARED DECISION-MAKING Aged Out No longer eligibl e based on patient's age to complete this topic MENINGOCOCCAL GROUPS A/C/Y/W VACCINE Aged Out No longer eligible b ased on patient's age to complete this topic PNEUMOCOCCAL VACCINE Aged Out No long er eligible based on patient's age to complete this topic
--- OUTSIDE RECORDS SUMMARY | 2025-03-02 21:15 | XMS_ITS | Clinical Summary ---
Author Organization [facility] Address [address] [address] Phone Care Team Providers Care Principal Scientist Name Role Phone Weston Mayo MD Primary Care Provider [phone] Allergies Active Allergy Reactions Criticality Noted Date Comments Environmental Other Low 03/16/2020 Unknown reaction to Ragweed Medications ibuprofen (MOTRIN) 600 MG tablet Take 1 Tab by mouth three times a day as needed for Pain. Administer with food. 30 Tab 9 Active HYDROcodone-ac etaminophen (Pettibone) 5-325 MG oral tablet Take 1 Tab by mouth every four hours as needed for Pain . Limit acetaminophen to 4000 mg per day from all sources. 6 Tab 0 Active Active Problems No known active problems Social History Tobacco Use Types Packs/Day Years Used Date Smoking Tobacco: Every Day Cigarettes Smokeless Tobacco: Never Alcohol Use Standard Drinks/Week Comments Not Currently 0 (1 standard drink = 0.6 oz pur e alcohol) Hunger Vital Sign Answer Date Recorded Worried About Running Out of Food in the Last Ye ar Never true 01/04/2019 Ran Out of Food in the Last Year Never true 01/04/2019 Sex and Gender Information Value Date Recorded Sex Assigned at Male 12/11/2018 9:41 PM ROLLING MACHINE OPERATOR Legal Sex Male 7:23 PM ROLLING MACHINE OPERATOR Gender Identity Male 12/11/2018 9:41 PM ROLLING MACHINE OPERATOR Sexual Orientation Not on file Obstetrics History Last Filed Vital Signs Vital Sign Reading Time Taken Comments Blood Pressure 115/72 03/16/2020 4:08 AM CDT Pulse 89 03/16/2020 4:08 AM CDT Temperature 36.4 C (97.6 F) 03/16/2020 4:08 AM CDT Respiratory Rate 18 03/16/2020 4:08 AM CDT Oxygen Saturation 97% 03/16/2020 4:08 AM CDT Inhaled Oxygen Concentration - - Weight 88 kg (194 lb) 03/16/2020 4:08 AM CDT Height 185.4 cm (6' 1) 03/16/2020 4:08 AM CDT Body Mass Index 25.6 03/16/2020 4:08 AM CDT Plan of Treatment Health Maintenance Due Date Last Done Comments Hepatitis B Vaccine (Standin g Order) (1 of 3 - 19+ 3-dose series) 1999 PERTUSSIS (Standing Order) 1999 TETANUS (Standing Order) 1999 COVID-19 Vaccine (2023-2 5 season) 2024 Influenza Vaccine Seasonal (Standing Order) (#1) 2024 HPV Vaccine (Standing Order) Aged Out No longer eligible based on patient's age to complete this topic Pneumococcal/PCV20 Vaccine: Pediatrics (2-5 yrs) and At-Risk Patients (6-49 yrs) (Standing Order) Aged Out No longer eligible b ased on patient's age to complete this topic Insurance [facility] Care Teams Principal Scientist Relationship Specialty Start Date End Date Weston Mayo MD [address] [id number] PCP - General Internal Medicine 03/11/13
--- OUTSIDE RECORDS SUMMARY | 2025-03-02 21:15 | XMS_ITS | Clinical Summary ---
Author Organization [facility] Address [address] [place] [address] Care Team Providers Care Gluing Machine Operator Automatic Name Role Phone Ender Webster MD Primary Care Provider [phone] Source Comments You are receiving this document as you are listed as the primary care provider,follow-up provider, or the patient has been referred to you for consultation.This is in compliance with the Medicare and[facility] EHR Incentive Program,which states Providers who transition their patient to another setting of careor provider of care or refers their patient to another provider of care shouldprovide summary care record for each transition of care or referral. [facility] Allergies No known active allergies Medications oxyCODONE-acetam inophen (PERCOCET) 5-325 MG tabletIndication s:Other closed fracture of distal end of right fibula with routine healing, subsequent encounter Take 1 Tablet by mouth every 8 hours as needed. 12 Tablet 04/22/2022 Active Active Problems No known active problems Family History Medical History Relation Name Comments Glaucoma Negative Family History Macular Degeneration Negative Family History Retinal Detachment Negative Family History Social History Tobacco Use Types Packs/Day Years Used Date Smoking Tobacco: Every Day Cigarettes Alcohol Use Standard Drinks/Week Comments Yes 0 (1 standard drink = 0.6 oz pur e alcohol) Sex and Gender Information Value Date Recorded Sex Assigned at Not on file Legal Sex Male 6:24 AM CDT Gender Identity Not on file Sexual Orientation Not on file Last Filed Vital Signs Vital Sign Reading Time Taken Comments Blood Pressure 118/90 04/20/2022 1:30 PM CDT Pulse 83 04/20/2022 1:30 PM CDT Temperature 36.7 C (98.1 F) 06/03/2022 10:15 AM CDT Respiratory Rate 16 04/20/2022 1:30 PM CDT Oxygen Saturation 98% 04/20/2022 1:30 PM CDT Inhaled Oxygen Concentration - - Weight 93 kg (205 lb) 06/03/2022 10:15 AM CDT Height 188 cm (6' 2) 06/03/2022 10:15 AM CDT Body Mass Index 26.32 06/03/2022 10:15 AM CDT Plan of Treatment Health Maintenance Due Date Last Done Comments Hep C Screening (Preventive Services) 1980 HIV Screening (Preventive Services) 1996 Adult Preventive Visit 1998 DTaP/Tdap/Td Vaccine (1 - Tdap) 1999 HepB Vaccine (1) 1999 Pneumococcal Vaccine (1 of 2 - PCV) 1999 Cholesterol 2015 COVID-19 Vaccine (3 - 2023-2 5 season) 2024 05/08/2021, 04/10/2021 Influenza Vaccine (#1) 2024 09/16/2012 Zoster/Shingles Vaccine (1 o f 2) 2030 HPV Vaccine Aged Out No longer eligi ble based on patient's age to complete this topic HepA Vaccine Aged Out No longer eligi ble based on patient's age to complete this topic Hib Vaccine Aged Out No longer eligi ble based on patient's age to complete this topic IPV (Polio) Vaccine Aged Out No longe r eligible based on patient's age to complete this topic MCV4 Vaccine Aged Out No longer eligi ble based on patient's age to complete this topic Meningococcal B Vaccine Aged Out No l onger eligible based on patient's age to complete this topic Care Teams Gluing Machine Operator Automatic Relationship Specialty Start Date End Date Ender Webster MD [address] [id number] PCP - General 02/14/11
[2025-03-02 21:18] VITALS: BP 125/75; PULSE 97; RESP 18; TEMP 37.4; O2SAT 94; BMI 25.3
[2025-03-02 21:24] VITALS: BP 125/75; PULSE 97; RESP 18; TEMP 37.4; O2SAT 94
--- NOTE | 2025-03-02 21:49 | ED.GENADULT ---
HPI - General Adult General Date Seen: 03/02/25 Chief complaint: Fever Stated complaint: Back pain, body aches Time Seen by Provider: 03/02/25 21:47 History of Present Illness HPI narrative: 44 yo m presenting to the ER today with fever, chills, nausea, body aches, and back pain, cough, productive of clear sputum. Symptoms began today. He presents to the ER today with his family member. She reports that he has been trying to quit smoking for the past couple of weeks so has been wearing a nicotine patch his feels like he has been having some cough for a couple of weeks but the patient says his cough really got bad today. Along with that he has just been feeling fatigued and achy, with some headache but prominently back pain. Is not having any abdominal pain. He has had poor appetite but no vomiting. No diarrhea. No rash. He has no known sick exposures. He does have a history of asthma but really has to use any treatment and does not even have an inhaler at home. Related Data Home Medications ?Medication ?Instructions ?Recorded ?Confirmed albuterol sulfate 90 mcg/actuation 1 - 2 puff inhalation Q4H PRN 07/16/23 03/02/25 aerosol inhaler (Ventolin HFA) wheezing nicotine 21 mg/24 hr daily 1 patch topical DAILY 11/02/23 03/02/25 transdermal patch Previous Rx's ?Medication ?Instructions ?Recorded nirmatrelvir 300 mg (150 mg See Rx Instructions PO .COMPLEX 03/02/25 x2)-ritonavir 100 mg tablet,dose #30 ea pack (Paxlovid) Allergies Allergy/AdvReac Type Severity Reaction Status Date / Time amoxicillin Allergy Mild hives Verified 03/02/25 21:26 house dust Allergy Mild noses Verified 03/02/25 21:26 running, eyes and throat dry [facility] Medical History No significant past medical history Surgical History No significant past surgical history Social History Smoking Status: Current every day smoker What tobacco products do you use: cigarettes Do you use any of these nicotine containing products: None Second hand tobacco smoke exposure: No How often do you have a drink containing alcohol: 2-3 times a week How many standard drinks containing alcohol do you have on a typical day: 1 or 2 How often do you have six or more drinks on one occasion: Never AUDIT-C Alcohol total score: 3 Non-prescribed substance use: marijuana (any form) Exam Narrative: Exam Narrative: Constitutional: Appears well-developed and well-nourished. Alert. Anxious but conversant. Non toxic. HENT: Head: Atraumatic. Nose: Nose normal. Mouth/Throat: Oral mucosa is clear and moist. no trismus. Pharynx normal. Tonsils symmetric. No tonsillar enlargement, erythema, or exudate. Eyes: Conjunctivae normal. EOM normal. Pupils equal, round, and reactive to light. No scleral icterus. Neck: Normal range of motion. Neck supple. No tracheal deviation present. Cardiovascular: Normal rate, regular rhythm. No gallop. No friction rub. No murmur heard. Symmetric radial artery pulses Pulmonary/Chest: Occasional dry cough. Effort normal. No stridor. No respiratory distress. No wheezes. No rales. No rhonchi . No tenderness. Abdominal: Soft. No distension. No mass. No tenderness. No rebound. No guarding. No CVA tenderness Musculoskeletal: RUE: Normal range of motion. No tenderness. No deformity LUE: Normal range of motion. No tenderness. No deformity RLE: Normal range of motion. No edema. No tenderness. No deformity LLE: Normal range of motion. No edema. No tenderness. No deformity Lymph: No cervical adenopathy. Neurological: Alert and oriented to person, place, and time. Normal strength. CN II-VII intact. No sensory deficit. GCS eye subscore is 4. GCS verbal subscore is 5. GCS motor subscore is 6. Normal coordination Skin: Skin is warm and dry. No rash noted. No pallor. Normal capillary refill. Psychiatric: Normal mood. Normal affect. Const: Vital Signs, click to edit/add: Vital Signs - 24 hr 03/02/25 21:18 03/02/25 21:24 03/02/25 23:47 Temperature 99.3 F 99.3 F 98.9 F Pulse Rate [Pulse Oximeter] 97 97 87 Respiratory Rate Blood Pressure [Ri ght Arm] 125/75 Blood Pressure [Ri ght Upper Arm] 125/75 115/77 Pulse Oximetry 94 94 97 Oxygen Delivery Me thod Room Air Room Air Room Air Course Vital Signs Vital signs: Initial Vital Signs Temperature 99.3 F 03/02/25 21:18 Temperature Source Oral 03/02/25 21:18 Pulse Rate 97 03/02/25 21:18 Respiratory Rate 18 03/02/25 21:18 Blood Pressure 125/75 03/02/25 21:18 Blood Pressure Mean 91 03/02/25 21:18 Blood Pressure Position Sitting 03/02/25 21:18 Pulse Oximetry 94 03/02/25 21:18 Oxygen Delivery Method Room Air 03/02/25 21:18 Vital Signs Temperature 99.3 F 03/02/25 21:18 Pulse Rate 97 03/02/25 21:18 Respiratory Rate 18 03/02/25 21:18 Blood Pressure 125/75 03/02/25 21:18 Pulse Oximetry 94 03/02/25 21:18 Oxygen Delivery Method Room Air 03/02/25 21:18 Temperature 98.9 F 03/02/25 23:47 Pulse Rate 87 03/02/25 23:47 Respiratory Rate 18 03/02/25 23:47 Blood Pressure 115/77 03/02/25 23:47 Pulse Oximetry 97 03/02/25 23:47 Oxygen Delivery Method Room Air 03/02/25 23:47 Medications Administered Medications: Discontinued Medications Generic Name Dose Route Start Last Admin Trade Name Freq PRN Reason Stop Dose Admin Ibuprofen 600 mg 03/02/25 22:10 03/02/25 22:18 Ibuprofen 600 Mg Tablet PO 03/02/25 22:11 600 mg ONCE ONE Administration Medical Decision Making [facility] Narrative Medical decision making narrative: This patient presents for evaluation of fever, chills, body aches, cough. Symptoms began today.. This is consistent with an upper respiratory tract infection. Viral testing positive for coronavirus but negative for influenza.. There is no signs at this point of serious bacterial infection such as OM, RPA, epiglottitis, DIE CASTING MACHINE OPERATOR, strep pharyngitis, pneumonia, sinusitis, meningitis, bacteremia, serious bacterial infection. Given clear lungs, fever curve, no hypoxia and no respiratory distress I do not feel a CXR is indicated at this point as the probability of bacterial pneumonia is very unlikely. There are no gastrointestinal symptoms at this point and no signs of dehydration. The patient and has had previous vaccination against COVID with the 1st 2 shots, but did not get any blisters. He has no known previous diagnosis of COVID during the pandemic. He would be ?high risk? per CDC guidelines because he has underlying asthma. Discussed packs of a treatment with him. He does strongly prefer Paxlovid. Paxlovid is not available here in the ER mellisa but I will send a prescription to his pharmacy at [facility] and will start that medications tomorrow. He is not on any other meds that would interact Paxlovid. Discussed potential for worsening illness and precautions return to the ER. Close followup with primary care physician is indicated. Return to ED for fever > 103, protracted vomiting, confusion, or other worsening. Lab Data Labs: Lab Results 03/02/25 Range/Units 22:12 SARS-CoV-2 (PCR) POSITIVE SARS-CoV-2 A (Negative) Influenza Type A (PCR) Negative PCR FLU A (Negative) Influenza Type B (PCR) Negative PCR FLU B (Negative) RSV (PCR) Negative PCR RSV (Negative) Discharge Plan Discharge Clinical Impression: COVID-19 Patient Disposition: Home, Self-Care Condition: Stable Instructions: COVID-19 (Coronavirus Disease 2019) (ED), COVID-19: Slow the Coronavirus Spread (ED), How to Recover from COVID-19 at Home (ED) Additional Instructions: As we discussed, please come back to the ER right away if you have worsening trouble breathing, low oxygen levels, chest pain, confusion, weakness, uncontrolled vomiting or diarrhea, or any concerns. Please start on the Paxlovid tomorrow morning. Starting Paxlovid early in the course of your illness can help you get better faster and reduces the chance of you developing severe COVID requiring hospitalization You should stay home until your symptoms are overall getting better in you have been afebrile for more than 24 hours. Typically people stay home for about 5 days while they are positive for COVID. After you are feeling better, you can go back to work. You should wear a mask when you have to go out until your symptoms are all completely gone. Typically you should wear mask for about 10 days. Prescriptions: New Paxlovid 300 mg (150 mg x 2)-100 mg tablets,dose pack See Rx Instructions .ROUTE .COMPLEX Qty: 30 0RF Rx Instructions: take TWO 150 mg tablets of nirmatrelvir with ONE 100 mg tablet of ritonavir twice daily for 5 days No Action nicotine 21 mg/24 hr patch 24 hour 1 patch topical DAILY albuterol sulfate [Ventolin HFA] 90 mcg/actuation HFA aerosol inhaler 1 - 2 puff INHALATION Q4H PRN (Reason: wheezing) Follow Up/Referrals: Provider,Not a Local [Primary Care Provider] - Stand Alone Forms: Work/School Release, [facility] Info Instructions
[2025-03-02] MEDS: IBUPROFEN 600 MG TABLET PO (22:18)
--- OUTSIDE RECORDS SUMMARY | 2025-03-02 22:57 | XMS_ITS | Clinical Summary ---
Author Organization [facility] Address [address] [place] [address] Care Team Providers Care Splicing Machine Operator Automatic Name Role Phone Unavailable Primary Care Provider Unavailabl e Source Comments [facility] [employer],non-owned Affiliates and Associated Physician Practices is amultiple site organization consisting of ambulatory clinics and hospital sitesin [place], [place], [place] and [place]. This disclosure is being madepursuant to the Care Everywhere program and may not contain all information available regarding this patient. Last updated 18.[facility] Social History Tobacco Use Types Packs/Day Years [...]
--- OUTSIDE RECORDS SUMMARY | 2025-03-02 22:57 | XMS_ITS | Clinical Summary ---
Author Organization [facility] Address [address] [place] [address] Care Team Providers Care Electro Mechanical Engineer Name Role Phone Ender Webster MD Unavailable [phone] Rosalio Quintana MD Primary Care Provider Allergies [...] Type Department Care Team Description 01/24/2025 Refill [facility] [id number] [place] [address] Rosalio Quintana MD Refill Request (Nicotine/) 01/19/2025 2:35 PM MANAGER HEART Office Visit [address] [address] Anais Flores PA Medication Management 01/19/2025 Travel 01/11/[address] [address] Rosalio Quintana MD Refill Request (Nicotine 21 [...] on file Legal Sex Male 6:54 PM MANAGER HEART Gender Identity Not on file Sexual Orientation Not on file Occupation Industry Job Start Date Job End Date Not on file Not on file Not on file Not on file Obstetrics History Last Filed Vital Signs Vital Sign Reading Time Taken Comments Blood Pressure 110/78 01/19/2025 2:33 PM MANAGER HEART Pulse 78 01/19/2025 2:33 PM MANAGER HEART Temperature 36.7 C (98 F) 08/09/2008 11:54 PM CDT Respiratory Rate 18 08/10/2008 1:00 AM CDT Oxygen Saturation 98% 01/19/2025 2:3 3 PM MANAGER HEART Inhaled Oxygen Concentration - - Weight 90.8 kg (200 lb 3.2 oz) 01/20/20 25 2:33 PM MANAGER HEART with shoes Height 183.5 cm (6' 0.24) 01/19/2025 2 :33 PM MANAGER HEART with shoes Body Mass Index 26.97 01/19/2025 2:33 PM MANAGER HEART Plan of Treatment Health Maintenance Due Date [...] 07/16/2033 07/16/2023 Tdap Completed 07/16/2023 Insurance [id number] [id number] [place] [address] [place] Care Teams Electro Mechanical Engineer Relationship Specialty [place] [address] [place] [address] PCP - General Family Practice 12/09/23 Ender Webster MD Family Practice 08/02/15
--- OUTSIDE RECORDS SUMMARY | 2025-03-02 22:57 | XMS_ITS | Clinical Summary ---
Author Organization [facility] Address [address] [address] Phone Care Team Providers Care Account Resolution Analyst Name Role Phone Weston Mayo MD Primary Care Provider Allergies Active Allergy Reactions Criticality Noted Date Comments Environmental Other Low 03/16/2020 Unknown reaction to Ragweed Medications ibuprofen (MOTRIN) 600 MG tablet Take 1 Tab by mouth three times a day as needed for Pain. Administer with food. 30 Tab 9 Active HYDROcodone-ac etaminophen ([place]) 5-325 MG oral tablet Take 1 Tab [...] Sex Assigned at Male 12/11/2018 9:41 PM JUNIOR PHP DEVELOPER Legal Sex Male 7:23 PM JUNIOR PHP DEVELOPER Gender Identity Male 12/11/2018 9:41 PM JUNIOR PHP DEVELOPER Sexual Orientation Not on file Obstetrics History [...] patient's age to complete this topic Insurance [facility] Care Teams Account Resolution Analyst Relationship Specialty Start Date End Date Weston Mayo MD [address] [id number] PCP - General Internal Medicine 03/11/13
--- OUTSIDE RECORDS SUMMARY | 2025-03-02 22:57 | XMS_ITS | Clinical Summary ---
Author Organization [facility] Address [address] [place] [address] Care Team Providers Care Lamp Inspector Name Role Phone Ender Webster MD Primary Care Provider [phone] Source Comments You are receiving this document as you are listed as the primary care provider,follow-up provider, or the patient has been referred to you for consultation.This is in compliance with the Medicare and[facility] EHR Incentive Program,which states Providers who transition [...] age to complete this topic Care Teams Lamp Inspector Relationship Specialty Start Date End Date Ender Webster MD [address] [address] PCP - General 02/14/11
[2025-03-02 23:00] LABS: PCR FLU A Negative PCR FLU A (Negative); PCR FLU B Negative PCR FLU B (Negative); PCR RSV Negative PCR RSV (Negative); SARS PCR* POSITIVE SARS-CoV-2 (Negative)
[2025-03-02 23:47] VITALS: BP 115/77; PULSE 87; RESP 18; TEMP 37.2; O2SAT 97
== END 2025-03-02 23:58 | disposition home or self-care (01) ==
PROVIDERS: Emergency Provider Emergency Medicine
DX: U07.1 COVID-19 (principal); R05.9 Cough, unspecified; F17.211 Nicotine dependence, cigarettes, in remission
CPT/HCPCS: 87631; 99283; 99284; A9270

== ENCOUNTER 2025-03-28 09:01 | Emergency (ER) | payer MEDICAID, SELFPAY ==
[2025-03-28 09:02] VITALS: PULSE 77
--- OUTSIDE RECORDS SUMMARY | 2025-03-28 09:03 | XMS_ITS | Continuity of Care Document ---
Author Organization [facility] Address [address] [facility] [address] [place] [address] Phone Care Team Providers Care Receiver Bulk System Name Role Phone Pearl Montana PT Unavailable Unavailable Allergies, Adverse Reactions, Alerts Substance Reaction Status Criticality No Known Drug Allergies Active No I nformation Medications Medication Instructions Dosage Effective Dates (start - stop) Status Comments Cymbalta 60 mg capsule,delayed release take 1 capsule by oral route every day 60 MG - Active ibuprofen 800 mg tablet take 1 tablet by oral route 3 times every day with food as needed 800 MG - Active FLEXERIL 10mg ORAL TABLET Take one tablet by mouth three times per day as needed - Active Procedures Procedure Date Psychotherapy, 45 minutes with patient o r family Est Pt Eval 15 Min Pain Assessment And Follow Up Plan Docum ented Psychotherapy, 45 minutes with patient o r family Phys Therap Eval Neuromuscular Re-education Psychiatric Diagnostic Evaluation Inj-s I Jt Arthrog &/ Anes/nader 15 Inject SI Joint Arthrography New Pt Eval 45 Min Assay of benzodiazepines Assay of amphetamine or methamphetamine Assay of barbiturates, not elsewhere spe cified Assay of cocaine or metabolite 15 Assay of methadone Opiate(s), drug and metabolites, each pr ocedure Drug confirmation, each procedure Pain Assessment And Follow Up Plan Docum ented Advance Directives Directive Yes / No Effective Date File Name No Information Encounters Encounter Description Practice Location Reason(s) For Visit Diagnoses Date Provider Providers Copied on Encounter SAVANNAH Alonso, [address] [facility] [address], [place], [place], [id number], [place] tel:[phone] [facility] No Information 6 Nan Kang. [address] [facility], [address], [place], [place], [id number], [place]. tel:[phone] Referring Provider: Ender Webster MD, [address] [facility] , [place], [address]. tel:[phone] Psychotherap y, 45 minutes with patient or family SAVANNAH Alonso, [address] [facility] [address], [place], [place], [address], [place] tel:[phone] [facility] [address] No Information Nick Epps. [address] [facility] [facility] [address], [place], [place], [id number], [place]. tel:[phone] Referring Provider: Ender Webster MD, [address] [facility] , [place], [address]. tel:[phone] Est Pt Eval 15 Min YOLANDE Alonso, [address] [facility] [facility] [address], [place], [place], [id number], [place] tel:[phone] [facility] Other intervertebral disc degeneration, lumbosacral regionOther specified dorsopathies lumbar regionLow back painSacrococcy geal disorders, not elswhere classified Openeugenia Wilkins. [address] [facility] [address], [place], [address], [place]. tel:[phone] Referring Provider: Ender Webster MD, [address] [facility] , [place], [address]. tel:[phone] Psychotherap y, 45 minutes with patient or family SAVANNAH Alonso, [address], [place], [place], [address], [place] tel:[phone] [facility] 7[address] No Information Marisol-Johannakari Epps. [address], [place], [place], [id number], [place]. tel:[phone] Referring Provider: Ender Webster MD, [address] [facility] , [place], [address]. tel:[phone] [facility], [address], [place], [place], [address], [place] tel:[phone] [facility] [address] No Information 5 Nan Kang. [address] [facility], [address], [place], [place], [address], [place]. tel:[phone] Referring Provider: Ender Webster MD, [address] [facility] , [place], [address]. tel:[phone] Psychiatric Diagnostic Evaluation Gavin [facility], [address], [place], [place], [address], [place] tel:[phone] [facility] 7[address] No Information Nick pierce Supriya. [address], [place], [place], [address], [place]. tel:[phone] Referring Provider: Ender Webster MD, [address] [facility] , [place], [address]. tel:[phone] [facility], [address] [facility], [address], [place], [address], [place] tel:[phone] [facility] [place] Sacrococcygeal disorders, not elswhere classifiedLow back painOther specified dorsopathies lumbar region [address] [facility], [address] [facility] [address], [place], [place], [address], [place] tel:[phone] [facility] [place] No Information No Information Referring Provider: Ender Webster MD, [address] [facility] , [place], [address]. tel:[phone] New Pt Eval [address] [facility], [address] [facility] [address], [place], [place], [address], [place] tel:[phone] [facility] Low back painOther specified dorsopathies lumbar region No Information Referring Provider: Ender Webster MD, [address] [facility] , [place], [address]. tel:[phone] Family History Family Member Type Diagnosis Age At Onset N/A Problem (finding) No Significant Family H istory Payers Payer name Insurance type Covered green party ID Mi sinha(s) [facility] [id number] Social History Type Description Quantity Date Captured Comments Sex Male Smoking Status No Information Chief Complaint And Reason For Visit No Information Reason For Referral Reason For Referral No Information History Of Present Illness Encounter Date Complaint History Of Prese nt Illness No Information Functional Status Date Functional Assessmen t No Information Instructions Date Instruction Additional Infor mation No Information Assessments Type Assessment Date No Information Patient Care Teams Name Effective Dates (start - stop) Status Members No Information
--- OUTSIDE RECORDS SUMMARY | 2025-03-28 09:03 | XMS_ITS | Clinical Summary ---
Author Organization [facility] Address [address] [place] [address] Care Team Providers Care Groover And Striper Operator Name Role Phone Ender Webster MD Primary Care Provider [phone] Source Comments You are receiving this document as you are listed as the primary care provider,follow-up provider, or the patient has been referred to you for consultation.This is in compliance with the Medicare and[facility] EHR Incentive Program,which states Providers who transition [...] 5 season) 2024 05/08/2021, 04/10/2021 Influenza Vaccine (Season Ended) 2025 09/16/2012 Zoster/Shingles Vaccine (1 o f 2) [...] age to complete this topic Care Teams Groover And Striper Operator Relationship Specialty Start Date End Date Ender Webster MD [address] [address] PCP - General 02/14/11
--- OUTSIDE RECORDS SUMMARY | 2025-03-28 09:03 | XMS_ITS | Clinical Summary ---
Author Organization [facility] Address [address] [place] [address] Care Team Providers Care Superintendent Drilling And Production Name Role Phone Unavailable Primary Care Provider Unavailabl e Source Comments [facility],non-owned Affiliates and Associated Physician Practices is amultiple site organization consisting of ambulatory clinics and hospital sitesin [place], [place], [place] and [place]. This disclosure is being madepursuant to the Care Everywhere program and may not contain all information available regarding this patient. Last updated 18.[facility] Social History Tobacco Use Types Packs/Day Years [...]
--- OUTSIDE RECORDS SUMMARY | 2025-03-28 09:03 | XMS_ITS | Clinical Summary ---
Author Organization [facility] Address [address] [address] Phone Care Team Providers Care Files Supervisor Name Role Phone Weston Mayo MD Primary Care Provider [phone] Allergies Active Allergy Reactions Criticality Noted Date Comments Environmental Other Low 03/16/2020 Unknown reaction to Ragweed Medications ibuprofen (MOTRIN) 600 MG tablet Take 1 Tab by mouth three times a day as needed for Pain. Administer with food. 30 Tab 9 Active HYDROcodone-ac etaminophen ([place]) 5-325 MG oral tablet Take 1 Tab [...] Sex Assigned at Male 12/11/2018 9:41 PM COMBUSTION ENGINEER Legal Sex Male 7:23 PM COMBUSTION ENGINEER Gender Identity Male 12/11/2018 9:41 PM COMBUSTION ENGINEER Sexual Orientation Not on file Obstetrics History [...] (Standing Order) 1999 TETANUS (Standing Order) 1999 HPV Vaccine (Standing Order) Aged Out No longer eligible based on patient's age to complete this topic Pneumococcal/PCV20 Vaccine: Pediatrics (2-5 yrs) and At-Risk Patients (6-49 yrs) (Standing Order) Aged Out No longer eligible b ased on patient's age to complete this topic Insurance [facility] Care Teams Files Supervisor Relationship Specialty Start Date End Date Weston Mayo MD [address] [address] PCP - General Internal Medicine 4/27/13
[2025-03-28 09:04] VITALS: BP 130/92; PULSE 70; RESP 18; TEMP 36.1; O2SAT 96; BMI 25.3
--- NOTE | 2025-03-28 09:25 | CRLHL7_ITS ---
For Patients: As a result of the Cures Act, medical imaging exams and procedure reports are released immediately into your electronic medical record. You may view this report before your referring provider. If you have questions, please contact your health care provider. Indication: Injury Technique: Left elbow 2 views Comparison: None Findings: Bones: No acute fracture or dislocation. Joint spaces: Joint spaces are well maintained. No degenerative changes. No sign of joint effusion. Soft tissues: Unremarkable. Impression: No acute fracture or dislocation. Dictated by Dorene Watson MD @ 03/28/2025 9:48:22 AM (Electronically Signed)
--- NOTE | 2025-03-28 09:25 | ED.UPPEXIN ---
HPI - Extremity Injury (Upper) General Chief Complaint: Extremity Pain/Injury, Upper Stated Complaint: right elbow pian Time Seen by Provider: 03/28/25 09:04 History of Present Illness HPI narrative: This 44-year-old male comes in with an injury to his right elbow. He was at work yesterday and states that he hit his right elbow against a metal rack. He states that he has decreased range of motion and only slept a few hours last night because of pain. He does not report any other injury. He has not taken any medications for pain. Related Data Home Medications ?Medication ?Instructions ?Recorded ?Confirmed albuterol sulfate 90 mcg/actuation 1 - 2 puff inhalation Q4H PRN 07/16/23 03/02/25 aerosol inhaler (Ventolin HFA) wheezing nicotine 21 mg/24 hr daily 1 patch topical DAILY 11/02/23 03/02/25 transdermal patch Previous Rx's ?Medication ?Instructions ?Recorded nirmatrelvir 300 mg (150 mg See Rx Instructions PO .COMPLEX 03/02/25 x2)-ritonavir 100 mg tablet,dose #30 ea pack (Paxlovid) Allergies Allergy/AdvReac Type Severity Reaction Status Date / Time amoxicillin Allergy Mild hives Verified 03/02/25 21:26 house dust Allergy Mild noses Verified 03/02/25 21:26 running, eyes and throat dry Review of Systems Status of ROS: Reports: 10 or more systems reviewed and unremarkable except as noted in History and below Narrative: Constitutional: No fevers, no weight gain or loss. Eyes: No discharge. No vision changes. HENT: No congestion, no sore throat, no ear pain. Cardiovascular: No chest pain, no palpitations. Respiratory: No shortness of breath, no wheezes, no cough. Gastrointestinal: No abdominal pain, no vomiting, no diarrhea. Genitourinary: No dysuria, no hematuria. Musculoskeletal: Right elbow injury as described above. Skin: No rashes, no pruritis. Neurological: No dizziness, weakness, sensory change, speech change. Endo/Heme/Allergies: No bruising or bleeding. No polydipsia. Pysch: no suicidality, no anxiety, no insomnia. All other systems reviewed and are negative. [facility] Medical History No significant past medical history Surgical History No significant past surgical history Social History Smoking Status: Current every day smoker What tobacco products do you use: cigarettes Do you use any of these nicotine containing products: None Second hand tobacco smoke exposure: No How often do you have a drink containing alcohol: 2-3 times a week How many standard drinks containing alcohol do you have on a typical day: 1 or 2 How often do you have six or more drinks on one occasion: Never AUDIT-C Alcohol total score: 3 Non-prescribed substance use: marijuana (any form) Exam Narrative: Exam Narrative: Constitutional: Well-developed, well-nourished, no acute distress. HEENT: Normocephalic, atraumatic. Neck: Normal range of motion. Nontender. Supple. Heart: Intact distal pulses. Lungs: No chest discomfort. No wheezes, rhonchi, or rales. Abdomen: Nontender. Back: Normal range of motion. Extremities: Right elbow pain with associated decreased range of motion. No sign of deformity or swelling or skin injury. Skin: Intact. No rash. Warm. No erythema or pallor. Neurologic: No altered sensation. No weakness. Alert and oriented. Psychiatric: No suicidality. No anxiety or depression. No insomnia. Nursing notes and vitals signs are reviewed. Const: Vital Signs, click to edit/add: Vital Signs - 24 hr 03/28/25 09:04 Temperature 96.9 F L Pulse Rate [Pulse Oximeter] 70 Respiratory Rate 18 Blood Pressure [Le ft Upper Arm] 130/92 H Pulse Oximetry 96 Oxygen Delivery Me thod Room Air Course Vital Signs Vital signs: Initial Vital Signs Temperature 96.9 F L 03/28/25 09:04 Temperature Source Temporal Artery Scan 03/28/25 09:04 Pulse Rate 70 03/28/25 09:04 Respiratory Rate 18 03/28/25 09:04 Blood Pressure 130/92 H 03/28/25 09:04 Blood Pressure Mean 104 03/28/25 09:04 Blood Pressure Position Sitting 03/28/25 09:04 Pulse Oximetry 96 03/28/25 09:04 Oxygen Delivery Method Room Air 03/28/25 09:04 Vital Signs Temperature 96.9 F L 03/28/25 09:04 Pulse Rate 70 03/28/25 09:04 Respiratory Rate 18 03/28/25 09:04 Blood Pressure 130/92 H 03/28/25 09:04 Pulse Oximetry 96 03/28/25 09:04 Oxygen Delivery Method Room Air 03/28/25 09:04 Temperature 96.9 F L 03/28/25 09:04 Pulse Rate 70 03/28/25 09:04 Respiratory Rate 18 03/28/25 09:04 Blood Pressure 130/92 H 03/28/25 09:04 Pulse Oximetry 96 03/28/25 09:04 Oxygen Delivery Method Room Air 03/28/25 09:04 MDM - Extremity Injury (Upper) MDM Narrative Medical decision making narrative: This patient comes in because of an injury to his right elbow that occurred yesterday at work. X-ray imaging shows no sign of fracture dislocation. The patient has a contusion that is causing significant discomfort for now and states that he had trouble sleeping last night. The patient did receive a sling and I provided a prescription for Toradol. I also provided a return to work note. Imaging Data XR R Elbow: Radiologist's impression: No acute fracture or dislocation. Discharge Plan Discharge Clinical Impression: Contusion of elbow, right Patient Disposition: Home, Self-Care Condition: Stable Additional Instructions: Wear sling as needed. Use medication as needed and directed. Increase activity as tolerated. Follow up with MD return if worsening. Prescriptions: No Action nicotine 21 mg/24 hr patch 24 hour 1 patch topical DAILY Paxlovid 300 mg (150 mg x 2)-100 mg tablets,dose pack See Rx Instructions .ROUTE .COMPLEX Qty: 30 0RF Rx Instructions: take TWO 150 mg tablets of nirmatrelvir with ONE 100 mg tablet of ritonavir twice daily for 5 days albuterol sulfate [Ventolin HFA] 90 mcg/actuation HFA aerosol inhaler 1 - 2 puff INHALATION Q4H PRN (Reason: wheezing) Follow Up/Referrals: Provider,Not a Local [Primary Care Provider] - Stand Alone Forms: [facility]
--- OUTSIDE RECORDS SUMMARY | 2025-03-28 10:10 | XMS_ITS | Clinical Summary ---
Author Organization [facility] Address [address] [address] Phone Care Team Providers Care Tobacco Weigher Name Role Phone Weston Mayo MD Primary Care Provider [phone] Allergies Active Allergy Reactions Criticality Noted Date Comments Environmental Other Low 03/16/2020 Unknown reaction to Ragweed Medications ibuprofen (MOTRIN) 600 MG tablet Take 1 Tab by mouth three times a day as needed for Pain. Administer with food. 30 Tab 9 Active HYDROcodone-ac etaminophen ([place]) 5-325 MG oral tablet Take 1 Tab [...] Sex Assigned at Male 12/11/2018 9:41 PM PROFESSOR OF CHEMISTRY Legal Sex Male 7:23 PM PROFESSOR OF CHEMISTRY Gender Identity Male 12/11/2018 9:41 PM PROFESSOR OF CHEMISTRY Sexual Orientation Not on file Obstetrics History [...] patient's age to complete this topic Insurance [facility] Care Teams Tobacco Weigher Relationship Specialty Start Date End Date Weston Mayo MD [address] [address] PCP - General Internal Medicine 4/27/13
--- OUTSIDE RECORDS SUMMARY | 2025-03-28 10:10 | XMS_ITS | Clinical Summary ---
Author Organization [employer] [facility] Address [address] [place] [address] Care Team Providers Care Roustabout Crew Name Role Phone Ender Webster MD Unavailable [phone] Rosalio Quintana MD Primary Care Provider Allergies [...] Encounters Date Type Department Care Team Description 03/22/2025 Telephone [facility] [address] [place] [address] Rosalio Quintana MD Error-please disregard 01/24/2025 Refill [facility] [address] [place] [address] Rosalio Quintana MD Refill Request (Nicotine/) 01/19/2025 2:35 PM ORDNANCE OFFICER Office Visit [address] [address] Anais Flores PA Medication Management 01/19/2025 Travel 01/11/2025 Refill [facility] [address] [place] [address] Rosalio Quintana MD Refill Request (Nicotine 21 [...] Date Smoking Tobacco: Some Days Cigarettes 0.4 31.4 Started: 11/15/1993 Smokeless Tobacco: Never Tobacco Cessation:Ready [...] on file Legal Sex Male 6:54 PM ORDNANCE OFFICER Gender Identity Not on file Sexual Orientation Not on file Occupation Industry Job Start Date Job End Date Not on file Not on file Not on file Not on file Obstetrics History Last Filed Vital Signs Vital Sign Reading Time Taken Comments Blood Pressure 110/78 01/19/2025 2:33 PM ORDNANCE OFFICER Pulse 78 01/19/2025 2:33 PM ORDNANCE OFFICER Temperature 36.7 C (98 F) 08/09/2008 11:54 PM CDT Respiratory Rate 18 08/10/2008 1:00 AM CDT Oxygen Saturation 98% 01/19/2025 2:3 3 PM ORDNANCE OFFICER Inhaled Oxygen Concentration - - Weight 90.8 kg (200 lb 3.2 oz) 01/20/20 25 2:33 PM ORDNANCE OFFICER with shoes Height 183.5 cm (6' 0.24) 01/19/2025 2 :33 PM ORDNANCE OFFICER with shoes Body Mass Index 26.97 01/19/2025 2:33 PM ORDNANCE OFFICER Plan of Treatment Health Maintenance Due Date Last Done Comments HIV for age 15-65 1995 Hepatitis C screening for ag e 18-79 1998 Pneumococcal series for age 6-49 (1 of 2 - PCV) 1999 Lipids for age 35-44 2015 Depression screening for age 12+ 02/27/2022 02/27/2021, 02/27/2021, 01/10/2020, Additional history exists COVID-19 vaccine series ( season) 2024 05/08/2021, 04/10/2021 Influenza Vaccine (Season Ended) 2025 09/16/20 12 BMI (ht and wt on same day) for age 18+ 01/19/2026 01/19/2025, 12/17/2022, 01/10/2021, Additional history exists Tetanus booster 07/16/2033 07/16/2023 Tdap Completed 07/16/2023 [place] Care Teams Roustabout Crew Relationship Specialty Start [place] [address] [place] [address] PCP - General Family Practice 12/09/23 Ender Webster MD Family Practice 08/02/15
--- OUTSIDE RECORDS SUMMARY | 2025-03-28 10:10 | XMS_ITS | Clinical Summary ---
Author Organization [facility] Address [address] [place] [address] Care Team Providers Care Adding Machine Mechanic Name Role Phone Ender Webster MD Primary Care Provider [phone] Source Comments You are receiving this document as you are listed as the primary care provider,follow-up provider, or the patient has been referred to you for consultation.This is in compliance with the Medicare and[facility] E[facility] Incentive [facility],which states Providers who transition [...] age to complete this topic Care Teams Adding Machine Mechanic Relationship Specialty Start Date End Date Ender Webster MD [address] [address] PCP - General 02/14/11
--- OUTSIDE RECORDS SUMMARY | 2025-03-28 10:10 | XMS_ITS | Clinical Summary ---
Author Organization [facility] Address [address] [place] [address] Care Team Providers Care Automobiles Salesperson Name Role Phone Unavailable Primary Care Provider Unavailabl e Source Comments [facility],non-owned Affiliates and Associated Physician Practices is amultiple site organization consisting of ambulatory clinics and hospital sitesin [place], [place], [place] and [place]. This disclosure is being madepursuant to the Care Everywhere program and may not contain all information available regarding this patient. Last updated 18.[facility] Social History Tobacco Use Types Packs/Day Years [...]
== END 2025-03-28 10:19 | disposition home or self-care (01) ==
PROVIDERS: Emergency Provider Emergency Medicine Emergency Medical Services
DX: S50.01XA Contusion of right elbow, initial encounter (principal); W22.03XA Walked into furniture, initial encounter
CPT/HCPCS: 73080; 99283; 99284

== ENCOUNTER 2025-11-02 20:57 | Emergency (ER) | payer OTHER, SELFPAY ==
--- OUTSIDE RECORDS SUMMARY | 2025-11-02 20:59 | XMS_ITS | Clinical Summary ---
Author Organization [facility] Address [address] [place] [address] Care Team Providers Care Off Track Betting Manager Name Role Phone Ender Webster MD Unavailable [phone] Rosalio Quintana MD Primary Care Provider Allergies Active AllergyReactionsCriticalityNoted DateCommentsPenicillins*Unknown 01/02/2021 Detected at allergy testing Medications MedicationSigDispense QuantityRefillsLast FilledStart DateEnd DateStatus albuterol HFA (PRO-AIR; VENTOLIN; PROVENTIL) 90 mcg/actuation inhaler Indications:Difficulty breathing,Asthma, unspecified asthma severity, unspecified whether complicated, unspecified whether persistent (HC)Inhale 1-2 Puffs by mouth every 4 hours if needed for Shortness Of Breath or Wheezing. 8 g 3Active nicotine 21 mg/24 hr (NICODERM; HABITROL) 21 mg/24 hr patch Indications:SmokerApply 1 Patch on dry, clean, hairless skin once daily. 28 Patch 5Active nicotine 14 mg/24 hr (NICODERM; HABITROL) 14 mg/24 hr patch Indications:SmokerApply 1 Patch on dry, clean, hairless skin once daily. 14 Patch 5Active nicotine 7 mg/24 hr (NICODERM; HABITROL) 7 mg/24 hr patch Indications:SmokerApply 1 Patch on dry, clean, hairless skin once daily. 14 Patch 5Active Active Problems ProblemNoted DateDiagnosed DateChalazion of right upper cymrfb4706/13/2024Smoker 11/30/2019Anxiety and jxlguuqtdi24/16/2020Mild intermittent asthma without ksyjrkdzxeia48/16/2020DDD (degenerative disc disease), csztww6602/26/2016Chronic pain jailbimh88/13/2016 Immunizations ImmunizationAdministration DatesNext DueCOVID-19 vaccine (Moderna 100mcg/0.5mL) PF, MDV05/08/2021,04/10/2021Influenavdeep IIV3 (Age >=3 years)09/16/2012Tdap 07/16/2023 Family History Medical HistoryRelationNameCommentsUnknownBrotherGood HealthDaughterx 2COPD FatherOtherFatherdegenerative disc diseaseHeart attackMaternal GrandfatherAsthma MotherHypothyroidismMotherCancer-colonPaternal GrandfatherOtherPaternal Grandfatherdegenerative disc diseaseGood HealthSonCancer-breastNo Family History Cancer-ovarianNo Family HistoryRelationNameStatusCommentsBrotherAliveDaughterx 2 AliveFatherAliveMaternal GrandfatherDeceasedMaternal GrandmotherDeceasedMother AlivePaternal GrandfatherDeceasedPaternal GrandmotherDeceasedSonAlive Social History Tobacco UseTypesPacks/DayYears UsedDateSmoking Tobacco: Some DaysCigarettes0.432 Started: 11/15/1993Smokeless Tobacco: Never Tobacco Cessation:Ready to Q uit: Not Asked; Counseling Given: Not Answered Comments:Would like to try patches Alcohol UseStandard Drinks/WeekCommentsYes9 (1 standard drink = 0.6 oz pure alcohol)weekendsPHQ-2AnswerDate RecordedPHQ-2 TOTAL YBJJK57802/27/2021ocial ConnectionsAnswerDate RecordedDo you often feel lonely or isolated from those around you?Financial Resource StrainAnswerDate RecordedDifficulty of Paying Living Lqnzpexj289ifficulty of Paying Living ExpensesNot on file 06/13/2024Food InsecurityAnswerDate RecordedDo you worry your food will run out before you are able to buy more?Transportation NeedsAnswerDate RecordedDoes lack of transportation keep you from medical appointments?1 06/13/2024oes lack of transportation keep you from work, meetings or getting things that you need?107/30/2024Housing StabilityAnswerDate RecordedWhat is your housing situation today?UtilitiesAnswerDate RecordedDo you have trouble paying for utilities (for example, heat, electricity, water, phone)?1 06/13/2024Sex and Gender InformationValueDate RecordedSex Assigned at BirthNot on fileLegal FibXjmf69/20/2013 6:54 PM CSTGender IdentityNot on fileSexual OrientationNot on fileOccupationIndustryJob Start DateJob End DateNot on fileNot on fileNot on fileNot on file Last Filed Vital Signs Vital SignReadingTime TakenCommentsBlood Uuquwoxj590/7803 2:33 PM [employer] Uqfqe3469 2:33 PM DCBJwtiutkjagv94.7 ??C (98 ??F)08/09/2008 11:54 PM CDT Respiratory Hypn837308/10/2008 1:00 AM CDTOxygen Tdvytxxxqo33%01/19/2025 2:33 PM CSTInhaled Oxygen Concentration--Fambrq41.8 kg (200 lb 3.2 oz)01/19/2025 2:33 PM CSTwith yqimaVibnwa591.5 cm (6' 0.24)01/19/2025 2:33 PM CSTwith shoesBody Mass Index26.9701/19/2025 2:33 PM [employer] Plan of Treatment Health MaintenanceDue DateLast DoneCommentsHIV for age 15-65011/21/1995Hepatitis C screening for age 18-7911/21/1998Hepatitis B series for 19+ (1 of 3 - 19+ 3- dose series)1999Pneumococcal series for age 6-49 (1 of 2 - PCV)1999 HPV series for age 9-45 (1 - 3-dose SCDM series)2007Lipids for age 35-44 2015Depression screening for age 12+/, 02/27/2021, 01/10/2020, Additional history existsCOVID-19 vaccine series ( - 2024- season)/, 04/10/2021Influenza Vaccine (#1)07/16/202509/16/2012BMI (ht and wt on same day) for age 18+6001/19/2025, 12/17/2022, 01/10/2021, Additional history existsTetanus ndoldan4907/16/2033 07/16/2023 Insurance * Guarantor: Maynor Kirklandunt TypeRelation to PatientDate of PhoneBilling AddressPersonal/EdbyvtEynb08/07/1981 [address], [place] [address] * Guarantor: Maynor Kirkland TypeRelation to PatientDate of PhoneBilling AddressWorkers ZrtbDhjh[birth year]/07/1981 [address], [place] [address] Care Teams Team MemberRelationshipSpecialtyStart [place] [address] [place] [address] PCP - GeneralFamily Practice12/09/23 Ender Webster MD [facility]08/02/15
--- OUTSIDE RECORDS SUMMARY | 2025-11-02 20:59 | XMS_ITS | Clinical Summary ---
Author Organization [facility] Address [address] [place] [address] Care Team Providers Care Domestic Laundry Worker Name Role Phone Ender Webster MD Primary Care Provider [phone] Source Comments You are receiving this document as you are listed as the primary care provider,follow-up provider, or the patient has been referred to you for consultation.This is in compliance with the Medicare and[facility] EHR Incentive Program,which states Providers who transition their patient to another setting of careor provider of care or refers their patient to another provider of care shouldprovide summary care record for each transition of care or referral. [facility] Allergies No known active allergies Medications MedicationSigDispense QuantityRefillsLast FilledStart DateEnd DateStatus oxyCODONE-acetaminophen (PERCOCET) 5-325 MG tablet Indications:Other closed fracture of distal end of right fibula with routine healing, subsequent encounterTake 1 Tablet by mouth every 8 hours as needed. 12 Tablet 04/22/2022ctive Active Problems No known active problems Family History Medical HistoryRelationNameCommentsGlaucomaNegative Family HistoryMacular DegenerationNegative Family HistoryRetinal DetachmentNegative Family History Social History Tobacco UseTypesPacks/DayYears UsedDateSmoking Tobacco: Every DayCigarettes Alcohol UseStandard Drinks/WeekCommentsYes0 (1 standard drink = 0.6 oz pure alcohol)Sex and Gender InformationValueDate RecordedSex Assigned at BirthNot on fileLegal HbkNxse15/10/2012 6:24 AM CDTGender IdentityNot on fileSexual OrientationNot on file Last Filed Vital Signs Vital SignReadingTime TakenCommentsBlood Jnkrwllu465/9006 1:30 PM CDT Bkodr0449/04/2022 1:30 PM CQQEybaqzonqwn56.7 ??C (98.1 ??F)06/03/2022 10:15 AM CDTRespiratory Anlg097004/20/2022 1:30 PM CDTOxygen Kcgjyywmxj65%04/20/2022 1:30 PM CDTInhaled Oxygen Concentration--Xrqsje43 kg (205 lb)06/03/2022 10:15 AM CDT Bsxpgf766 cm (6' 2)06/03/2022 10:15 AM CDTBody Mass Index26.32006/03/2022 10:15 AM CDT Plan of Treatment Health MaintenanceDue DateLast DoneCommentsHep C Screening (Preventive Services) 1980HIV Screening (Preventive Services)1996Adult Preventive Visit 1998DTaP/Tdap/Td Vaccine (1 - Tdap)1999HepB Vaccine (1)1999 Pneumococcal Vaccine (1 of 2 - PCV)11/21/19991709Vrifgyezuna78/07/2016COVID-19 Vaccine (3 - season)/, 04/10/2021Influenza Vaccine (#1)/12/2011Zoster/Shingles Vaccine (1 of 2)2030HPV Vaccine (No Doses Required)CompletedHepA VaccineAged OutNo longer eligible based on patient's age to complete this topicHib VaccineAged OutNo longer eligible based on patient's age to complete this topicIPV (Polio) VaccineAged OutNo longer eligible based on patient's age to complete this topicMCV4 VaccineAged OutNo longer eligible based on patient's age to complete this topicMeningococcal B VaccineAged OutNo longer eligible based on patient's age to complete this topic Care Teams Team MemberRelationshipSpecialtyStart DateEnd Ender Webster MD [address] [address] PCP - General02/14/11
--- OUTSIDE RECORDS SUMMARY | 2025-11-02 21:00 | XMS_ITS | Clinical Summary ---
Author Organization [facility] Address [address] [address] Phone Care Team Providers Care Wort Extractor Name Role Phone Weston Mayo MD Primary Care Provider [phone] Allergies Active AllergyReactionsCriticalityNoted DateCommentsEnvironmentalOtherLow 03/16/2020 Unknown reaction to Ragweed Medications MedicationSigDispense QuantityRefillsLast FilledStart DateEnd DateStatus ibuprofen (MOTRIN) 600 MG tablet Take 1 Tab by mouth three times a day as needed for Pain. Administer with food. 30 Tab 12/11/2018Active HYDROcodone-acetaminophen (Erin) 5-325 MG oral tablet Take 1 Tab by mouth every four hours as needed for Pain . Limit acetaminophen to 4000 mg per day from all sources. 6 Tab 03/16/2020Active Active Problems No known active problems Social History Tobacco UseTypesPacks/DayYears UsedDateSmoking Tobacco: Every DayCigarettes Smokeless Tobacco: NeverAlcohol UseStandard Drinks/WeekCommentsNot Currently0 (1 standard drink = 0.6 oz pure alcohol)Hunger Vital SignAnswerDate RecordedWorried About Running Out of Food in the Last YearNever 01/04/2019Ran Out of Food in the Last YearNever 01/04/2019Sex and Gender InformationValueDate RecordedSex Assigned at FtbwxHgtr97/27/2019 9:41 PM CSTLegal SskDosb1312/27/2012 7:23 PM SPRAY TECHNICIAN Gender YmkdrqcaGxmq85/27/2019 9:41 PM CSTSexual OrientationNot on file Last Filed Vital Signs Vital SignReadingTime TakenCommentsBlood Dhiybozx797/7205 4:08 AM CDT Hysoj9378 4:08 AM RGQKdddhrxhtfo80.4 ??C (97.6 ??F)03/16/2020 4:08 AM CDTRespiratory Zdvy636503/16/2020 4:08 AM CDTOxygen Wdmutwraew36%03/16/2020 4:08 AM CDTInhaled Oxygen Concentration--Hjxccm97 kg (194 lb)03/16/2020 4:08 AM CDT Jaepbi688.4 cm (6' 1)03/16/2020 4:08 AM CDTBody Mass Index25.6003/16/2020 4:08 AM CDT Plan of Treatment Health MaintenanceDue DateLast DoneCommentsHepatitis B Vaccine (Standing Order) (1 of 3 - 19+ 3-dose series)1999PERTUSSIS (Standing Order)1999 TETANUS (Standing Order)1999COVID-19 Single Dose07/16/2025Influenza Vaccine Seasonal (Standing Order) (#1)2025HPV Vaccine (Standing Order) (No Doses Required)CompletedPneumococcal/PCV20 Vaccine: Pediatrics (2-5 yrs) and At- Risk Patients (6-49 yrs) (Standing Order)Aged OutNo longer eligible based on patient's age to complete this topic Insurance Care Teams Team MemberRelationshipSpecialtyStart DateEnd Date Weston Mayo MD [address] [address] PCP - GeneralInternal Medicine03/11/13
--- OUTSIDE RECORDS SUMMARY | 2025-11-02 21:00 | XMS_ITS | Clinical Summary ---
Author Organization [facility] Address [address] [place] [address] Care Team Providers Care Veneer Clipper Name Role Phone Unavailable Primary Care Provider Unavailabl e Source Comments [facility],non-owned Affiliates and Associated Physician Practices is amultiple site organization consisting of ambulatory clinics and hospital sitesin [place], [place], [place] and [place]. This disclosure is being madepursuant to the Care Everywhere program and may not contain all information available regarding this patient. Last updated 18.[facility] Social History Tobacco UseTypesPacks/DayYears UsedDateSmoking Tobacco: Heavy SmokerCigarettes Sex and Gender InformationValueDate RecordedSex Assigned at BirthNot on file Legal GbbCvcb2905/24/2018 2:27 PM CDTGender IdentityNot on fileSexual Orientation Not on file Last Filed Vital Signs Vital SignReadingTime TakenCommentsBlood Kweubwwd920/80005/11/2016 3:33 AM CDT Xtwmz00475/27/2016 9:33 AM FEQHloaesmxngd38.4 ??C (97.5 ??F)05/11/2016 3:33 AM CDTRespiratory Kcpk643605/11/2016 3:33 AM CDTOxygen Goltsyvmda45%05/11/2016 3:33 AM CDTInhaled Oxygen Concentration--Weight--Height--Body Mass Index-- Plan of Treatment Health MaintenanceDue DateLast DoneCommentsLIPID IIROZJL69 1980HIV SCREENING 1995HEPATITIS C LDPTWDDVB34/03/1999DTAP/TDAP/TD VACCINES (1 - Tdap) 1999HEPATITIS B VACCINE (1 of 3 - 19+ 3-dose series)1999HPV VACCINE (1 - 3-dose SCDM series)2007DEPRESSION KAYWEXIWY41/01/2025COVID-19 VACCINE ( - 2024- season)2025INFLUENZA VACCINE (#1)2025ZOSTER VACCINE (1 of 2)2030HIB VACCINEAged OutNo longer eligible based on patient's age to complete this topicMENINGOCOCCAL (Group B) VACCINE SHARED DECISION-MAKINGAged OutNo longer eligible based on patient's age to complete this topicMENINGOCOCCAL GROUPS A/C/Y/W VACCINEAged OutNo longer eligible based on patient's age to complete this topicPNEUMOCOCCAL VACCINEAged OutNo longer eligible based on patient's age to complete this topic
--- OUTSIDE RECORDS SUMMARY | 2025-11-02 21:00 | XMS_ITS | Patient Health Record ---
Author Organization [facility] Address [address] [place] [id number] Phone [phone] Care Team Providers Care Access Consultant Name Role Phone Weston Mayo MD Primary Care Provider Reason For Referral No Information Medications Medication SIG (Take, Route, Frequency, Duration) Notes Start Date End Date Diagnosis (ICD Code) Status Baclofen 10 MG Tablet 1 tablet with food or milk Orally Three times a day as needed 01/23/2019Lumbar disc disease (ICD_10 - M51.9)Active Social History Tobacco Use: Social History Observation Description Date Details (start date - stop date) Current Smoker NA - NA Sex Observation Social History Observation Description Sex Observation Male Social History Tobacco Use:Social InfoQuestionAnswerNotesTobacco Use/SmokingSmoking Status: current every day smoker Problems Problem Type SNOMED Code ICD Code Dates Problem Status W/U Sta tus Risk Notes Problem Disorder of lumbar disc (401631479) Lumbar disc disease (M51.9) Added On:12/16/2012 Active confirmed ProblemMajor depressive disorder, single episode (54305836)Major depressive disorder, single episode (F32.9) Added On:01/10/2013 Activeconfirmed Plan Of Treatment Pending Test Test Name Order Date Toxicology Screen 03/11/2012 Xray: Thoracic Spine, 3 views 03/29/2014 Insurance Providers Payer Name Payer Address Payer Phone Subscriber Number Group Number Insured Name Patient Relationship to Insured Coverage Start Date Coverage End Date BC LMN PMAP [address] [address] [place] [address] [id number] Maynor Rangel Self - patient is the insured Medical (General) History Medical History History ICD Code Genital warts Lumbar strain, DJD lumbar spine with chronic back painMajor depressionSmall pneumothoraxSurgical History Surgery Date(Month/Year) none Hospitalization History Reason Date(Month/Year) none
[2025-11-02 21:14] VITALS: BP 105/74; PULSE 87; RESP 22; TEMP 36.9; O2SAT 98; BMI 21.6
[2025-11-02 22:02] LABS: PCR FLU A POSITIVE PCR FLU A (Negative); PCR FLU B Negative PCR FLU B (Negative); PCR RSV Negative PCR RSV (Negative); SARS PCR* Negative SARS-CoV-2 (Negative)
--- NOTE | 2025-11-02 22:21 | ED_ITS ---
HPI - General Adult General Chief complaint: Fever Stated complaint: fever Time Seen by Provider: 11/02/25 21:18 Source: patient Mode of arrival: ambulatory Limitations: no limitations History of Present Illness HPI narrative: 44-year-old male presents to the emergency department with 4 and half days of fever, congestion, cough and fatigue. Fevers have been intermittent and actually is not febrile today and is feeling a little bit better today compared to the previous 3 days. Has had difficulty sleeping, significant body aches, headache, sore throat and cough as stated. Cough is nonproductive. He does smo ke and it sounds like probably has a history of reactive airway disease based on his description of previous illnesses but is not currently having a productive cough of any kind. He has been intermittently using Tylenol and ibuprofen to help with symptoms with some temporary improvement. Still drinking fluids, no vomiting or diarrhea. No injury or trauma. He does not have any chronic long-term health problems. He does not take any prescription medications. He did not get a flu shot this year. Girlfriend has similar symptoms and accompanies him today and is also being evaluated. Past medical history notable for tobacco use, reactive airway disease, no major long-term health problems are long-term daily prescription medications, no allergies. ROS notable for the respiratory, generalized symptoms as above, otherwise denies times 12 systems today. Related Data Home Medications ?Medication ?Instructions ?Recorded ?Confirmed albuterol sulfate 90 mcg/actuation 1 - 2 puff inhalati on Q4H PRN 07/16/23 03/02/25 aerosol inhaler (Ventolin HFA) wheezing nicotine 21 mg/24 hr daily 1 patch topical DAILY 11/0203/02/25 transdermal patch Previous Rx's ?Medication ?Instructions ?Recorded nirmatrelvir 300 mg (150 mg See Rx Instructions PO .CO MPLEX 03/02/25 x2)-ritonavir 100 mg tablet,dose #30 ea pack (Paxlovid) ketorolac 10 mg tablet 10 mg PO TID 5 days #15 tabs 03/28/25 Allergies Allergy/AdvReac Type Severity Reaction Status Date / Time amoxicillin Allergy Mild hives Verified 03/02/25 21:26 house dust Allergy Mild noses Verified 03/02/25 21:26 running, eyes and throat dry PFSH PFS Medical History No significant past medical history Surgical History No significant past surgical history Social History Smoking Status: Current every day smoker What tobacco products do you use: cigarettes Do you use any of these nicotine containing products: None Second hand tobacco smoke exposure: No How often do you have a drink containing alcohol: 2-3 times a week How many standard drinks containing alcohol do you have on a typical day: 1 or 2 How often do you have six or more drinks on one occasion: Never AUDIT-C Alcohol total score: 3 Non-prescribed substance use: marijuana (any form) service: No Exam Const: Vital Signs, click to edit/add: Vital Signs - 24 hr 11/02/25 21:14 Temperature 98.4 F Pulse Rate [Pulse Oximeter] 87 Respiratory Rate 22 Blood Pressure [Ri ght Upper Arm] 105/74 Pulse Oximetry 98 Oxygen Delivery Me thod Room Air Documenting provider has reviewed patient's vital signs: yes Common normals: no apparent distress General appearance: well kempt Other: A little irritable, but redirectable. HENMT: Common normals: normocephalic and moist oral mucous membranes Head and scalp: normocephalic Face and sinus: normal facial exam Mouth: oral and palatal mucosa normal Eye: Common normals: conjunctivae normal General eye: normal appearance of both eyes Conjunctiva: conjunctiva(e) normal Neck & C-Spine: Common normals: full ROM and no lymphadenopathy General: normal visual inspection Resp: Common normals: normal respiratory effort, no use of accessory muscles and clear to auscultation bilaterally Effort & inspection: able to speak in complete sentences Auscultation: clear to auscultation bilaterally Cardio: Common normals: regular rate, regular rhythm, S1 normal heart sound, S2 normal heart sound and no murmurs Rate: regular rate Rhythm: regular rhythm Heart sounds: S1 normal and S2 normal Extremity: Common normals: normal to inspection Psych: Appearance: well kempt Attitude: engaged Activity/motor behavior: appropriate eye contact Insight: insight good Judgement: judgment good Skin: Common normals: no rashes or lesions noted General skin exam: no rashes or lesions noted Course Course ED Course: 44-year-old male with fever, cough and myalgias consistent with most likely influenza a, we are seeing a lot of this in the community right now. Viral swabs were collected and are also positive. He is at high risk of complication due to smoking status but his lungs sound great today, oxygen levels look good, respiratory rate is reassuring as are the rest of his vitals. Patient counseled on findings. Do not recommend antiviral medications due to duration of illness. Counseled on symptomatic treatment with Tylenol and ibuprofen. Alarm symptoms reviewed that would warrant ED re-evaluation. Flu shot encouraged for future years. All questions answered, written instructions provided Vital Signs Vital signs: Initial Vital Signs Temperature 98.4 F 11/02/25 21:14 Temperature Source Temporal Artery Scan 11/02/25 21:14 Pulse Rate 87 11/02/25 21:14 Pulse Rhythm Regular 11/02/25 21:14 Respiratory Rate 22 11/02/25 21:14 Blood Pressure 105/74 11/02/25 21:14 Blood Pressure Mean 84 11/02/25 21:14 Blood Pressure Position Sitting 11/02/25 21:14 Pulse Oximetry 98 11/02/25 21:14 Oxygen Delivery Method Room Air 11/02/25 21:14 Vital Signs Temperature 98.4 F 11/02/25 21:14 Pulse Rate 87 11/02/25 21:14 Respiratory Rate 22 11/02/25 21:14 Blood Pressure 105/74 11/02/25 21:14 Pulse Oximetry 98 11/02/25 21:14 Oxygen Delivery Method Room Air 11/02/25 21:14 Temperature 98.4 F 11/02/25 21:14 Pulse Rate 87 11/02/25 21:14 Respiratory Rate 22 11/02/25 21:14 Blood Pressure 105/74 11/02/25 21:14 Pulse Oximetry 98 11/02/25 21:14 Oxygen Delivery Method Room Air 11/02/25 21:14 Medical Decision Making Lab Data Lab results reviewed: Yes I reviewed the patient's lab results Lab results narrative: Positive for influenza a, as expected Labs: Lab Results 11/02/25 Range/Units 21:10 SARS-CoV-2 (PCR) Negative SARS-CoV-2 (Negative) Influenza Type A (PCR) POSITIVE PCR FLU A A (Negative) Influenza Type B (PCR) Negative PCR FLU B (Negative) RSV (PCR) Negative PCR RSV (Negative) Discharge Plan Discharge Clinical Impression: Influenza A Patient Disposition: Home w/ Parent or Adult Condition: Stable Instructions: Influenza (DC) Additional Instructions: As suspected, your swab is positive for influenza A. On day 5 of symptoms, antiviral medicines will not be effective for you. Continue use of Tylenol 1000 mg every 6 hours and or ibuprofen 600 mg every 6 hours as needed for body aches, headache. There are no signs of complications with her breathing, oxygen levels, etc.. This is good news. Your symptoms should start to improve in about 48-72 hours. Continue drinking lots of fluids. Return to the emergency department if you have severe shortness of breath, severe weakness or other signs of general worsening. I would recommend that you quarantine for at least another 24 hours, potentially up to 48 hours if your fever does not resolve. Activity Level: Activity as Tolerated Discharge Diet: Regular Prescriptions: No Action nicotine 21 mg/24 hr patch 24 hour 1 patch topical DAILY Paxlovid 300 mg (150 mg x 2)-100 mg tablets,dose pack See Rx Instructions .ROUTE .COMPLEX Qty: 30 0RF Rx Instructions: take TWO 150 mg tablets of nirmatrelvir with ONE 100 mg tablet of ritonavir twice daily for 5 days ketorolac 10 mg tablet 10 mg PO TID 5 Days Qty: 15 0RF albuterol sulfate [Ventolin HFA] 90 mcg/actuation HFA aerosol inhaler 1 - 2 puff INHALATION Q4H PRN (Reason: wheezing) Follow Up/Referrals: Provider,Not a Local [Primary Care Provider, Family Practice] Stand Alone Forms: TeamSupport Info Instructions
== END 2025-11-02 22:19 | disposition home or self-care (01) ==
LOC: ED 22:11
PROVIDERS: Emergency Provider Family Medicine
DX: J10.1 Influenza due to other identified influenza virus with other respiratory manifestations (principal)
CPT/HCPCS: 87631; 99283